=== PATIENT | male | born 1945 | race Caucasian/White ===

== ENCOUNTER 2020-09-25 17:34 | Emergency (ER) | payer MEDICARE, SELFPAY ==
--- NOTE | ~2020-09-25 | XR_ITS ---
EXAMINATION: XR chest 2V DATE: 09/25/2020 18:08 INDICATION: Cough and shortness of breath TECHNIQUE: frontal and lateral views of the chest were obtained. COMPARISON: Chest radiograph and CT dated 11/22/2011 FINDINGS: New small subtle airspace opacity at the lateral right midlung zone. Linear atelectasis/scarring at t he left costophrenic angle. Blunting at the costophrenic angles and posterior sulci consistent with v jesus small bilateral pleural effusions. No pulmonary edema, or pneumothorax. The cardiomediastinal zulema houette is normal. Mild thoracic spondylosis. IMPRESSION: 1. Subtle small airspace process in the lateral right midlung zone which could represent atelectasis or pneumonia. 2. Very small bilateral pleural effusions with mild left basilar atelectasis/scarring. Reviewed, dictated and finalized at [facility]. SPACE MANAGER IMPRESSION: 1. Subtle small airspace process in the lateral right midlung zone which could represent atelectasis or pneumonia. 2. Very small bilateral pleural effusions with mild left basilar atelectasis/sc arring.
--- NOTE | 2020-09-25 17:51 | ED.URI ---
HPI - URI/Sore Throat General Chief Complaint: Upper Respiratory Infection Stated Complaint: pneumonia Time Seen by Provider: 09/25/20 17:52 Source: patient and RN notes reviewed History of Present Illness HPI Narrative: Patient is a 75-year-old male who presents the urgent care with complaints of 2-week history of intermittent mid back pains, mild nonproductive cough, intermittent chills, some night sweats, and increased shortness of breath on exertion. Patient states he does have chronic shortness of breath due to CHF but states that this has been worse. Denies of any lower leg swelling. Denies of any chest pain. Patient denies of any known fever, nausea, vomiting, upper respiratory symptoms. Denies of any known contact with Covid. Patient states that he has had pneumonia a few times in the past and is worried that he has pneumonia again. No other acute complaints. No acute distress noted. Patient aware of the plan of care. Some parts of this dictation were generated by voice recognition software and may contain typographical and/or grammatical inaccuracies. Related Data Home Medications Medication Instructions Recorded Confirmed aspirin 81 mg tablet,delayed 81 mg PO DAILY 04/14/20 09/25/20 release atorvastatin 10 mg tablet 10 mg PO DAILY 04/14/20 09/25/20 chromium picolinate 500 mcg capsule 500 mcg PO DAILY 04/14/20 coenzyme Q10 100 mg capsule 100 mg PO DAILY 04/14/20 krill oil 500 mg capsule mg PO 04/14/20 losartan 100 mg tablet 100 mg PO DAILY 04/14/20 09/25/20 melatonin 3 mg capsule PO 04/14/20 multivitamin-ferrous 1 tablet PO DAILY 04/14/20 fumarate-folic acid 18 mg-400 mcg tablet testosterone cypionate 100 mg/mL 100 mg IM .q 10 days ml 04/14/20 09/25/20 intramuscular oil vit cap PO 04/14/20 C,E,zinc,Pb-qmmgn-9-lutein-zeaxanthin 250 mg-2.5 mg-0.5 mg capsule Allergies Allergy/AdvReac Type Severity Reaction Status Date / Time No Known Allergies Allergy Verified 09/25/20 18:16 Review of Systems Review of Systems: Narrative: CONSTITUTIONAL: Reports of chills and sweats EYES: Denies visual changes, redness, or discharge. ENT: Denies rhinorrhea, congestion, sore throat, or otalgia. CARDIOVASCULAR: Denies chest pain, palpitations, or edema. RESPIRATORY: Reports a mild nonproductive cough with intermittent dyspnea GASTROINTESTINAL: Denies abdominal pain, nausea, vomiting, or diarrhea. GENITOURINARY: Denies dysuria or hematuria. SKIN: Denies rash or itching. MUSCULOSKELETAL: Reports of mild intermittent mid back pains NEUROLOGIC: Denies headache, numbness, or weakness. PSYCHIATRIC: Denies anxiety or depression. All other systems reviewed are negative, except as documented in HPI. PMFSH Family History Family History Father Cerebrovascular accident Patient's father is Sibling Family history of lung cancer Patient's sister is Patient's brother is Mother Family history of lung cancer Patient's mother is Other Family history of cardiovascular disease Social History Social History Smoking status: Never smoker Second hand tobacco smoke exposure: No Smoking end date: 11/10/69 Alcohol intake: current Comments At the time of my signature, I reviewed and agree with the nursing past medical, surgical, social, and family history. There is no relevant family history pertinent to the patient complaint. Exam Narrative: Exam Narrative: GENERAL: This is a well-nourished, well-developed patient, in no apparent distress. HEAD: normocephalic, atraumatic. EYES: PERRL. Sclera clear/white. Vision is grossly intact. EARS: External ears normal NOSE: External nose normal with no obvious nasal discharge, nares without redness, no rhinorrhea. THROAT: Mucous membranes moist, posterior pharynx clear. NECK: Neck supple CARDIOVASCULAR: Regular rate
[2020-09-25 17:53] VITALS: BP 146/82; PULSE 61; RESP 20; TEMP 37.2; O2SAT 98
== END 2020-09-25 18:39 | disposition home or self-care (01) ==
PROVIDERS: Emergency Provider Nurse Practitioner Family; PCP Internal Medicine
DX: J18.9 Pneumonia, unspecified organism (principal); I11.0 Hypertensive heart disease with heart failure; I50.9 Heart failure, unspecified; E78.00 Pure hypercholesterolemia, unspecified; I25.10 Atherosclerotic heart disease of native coronary artery without angina pectoris; Z85.828 Personal history of other malignant neoplasm of skin
CPT/HCPCS: 71046; 99213; G0463

== ENCOUNTER 2021-06-19 12:58 | Outpatient (CLI) | payer MEDICARE, SELFPAY ==
[2021-06-19 13:42] LABS: Anion Gap 3 mmol/L (8-16); Blood Urea Nitrogen 23 mg/dL (9-20); Calcium 9.3 mg/dL (8.4-10.2); Carbon Dioxide 26 mmol/L (22-30); Chloride 108 mmol/L (98-107); Estimated Glomerular Filt Rate > 60; Glucose 115 mg/dL (65-110); Potassium 4.4 mmol/L (3.4-5.0); Sodium 137 mmol/L (137-145)
--- NOTE | 2021-06-19 15:00 | ECG_ITS ---
Measurements Intervals [place] Rate: 56 P: 54 CT: 175 QRS: 8 QRSD: 116 T: 52 QT: 383 QTc: 370 Interpretive Statements SINUS BRADYCARDIA BORDERLINE R WAVE PROGRESSION, ANTERIOR LEADS MINIMAL Q WAVES- INFERIOR LEADS BASELINE ARTIFACT- I, II, III, AVR, AVL, AVF BORDERLINE ECG Electronically Signed On 06-19-2021 13:17:15 CDT by Ming Moscoso D.O.
== END 2021-06-19 12:59 | disposition home or self-care (01) ==
LOC: ANHSURGERY 12:59
PROVIDERS: Anesthesiology; PCP Internal Medicine; Visit Provider Urology
DX: N40.0 Benign prostatic hyperplasia without lower urinary tract symptoms (principal); I10 Essential (primary) hypertension; Z01.818 Encounter for other preprocedural examination
CPT/HCPCS: 36415; 80048; 87086; 93005

== ENCOUNTER 2021-06-27 04:26 | Day surgery (SDC) | payer MEDICARE, SELFPAY ==
[2021-06-19 09:37] VITALS: BMI 30.2
[2021-06-27] VITALS (8 sets, daily range): BP systolic 106–137; BP diastolic 62–87; PULSE 50–68; RESP 13–18; TEMP 36.1–36.2; O2SAT 97–100
[2021-06-27] MEDS: ACETAMINOPHEN 500 MG TABLET 1000 MG PO (10:25)
--- NOTE | 2021-06-27 10:46 | WPDANESEPPF ---
Anes - Initial Pre Proc Eval Procedure: Operation Date: 06/27/21 12:00 Proposed Procedures p Urolift - Mounika Astudillo MD Date/Time: 06/27/21 10:46 Surgeon: Mounika Astudillo MD Pre Op Diagnosis: BPH Patient Data Age: 75 Gender: M Height: 1.88 m Weight: 108.1 kg Last Vital Signs Temp 36.1 C L 06/27/21 10:05 Pulse 52 L 06/27/21 10:05 Resp 18 06/27/21 10:05 BP 125/69 06/27/21 10:05 Pulse Ox 97 06/27/21 10:05 Allergies Allergy/AdvReac Type Severity Reaction Status Date / Time meloxicam Allergy Unknown Verified 06/19/21 09:27 trazodone Allergy Unknown Verified 06/19/21 09:27 Home Medications Medication Instructions Recorded Confirmed Type aspirin 81 mg tablet,delayed 81 mg PO HS 04/14/20 06/19/21 History release atorvastatin 10 mg tablet 10 mg PO HS 04/14/20 06/19/21 History carvedilol 25 mg tablet 37.5 mg PO Q12H #180 tablet 04/14/20 06/19/21 Rx coenzyme Q10 100 mg capsule 100 mg PO DAILY 04/14/20 06/19/21 History krill oil 500 mg capsule 500 mg PO DAILY 04/14/20 06/19/21 History losartan 100 mg tablet 100 mg PO QAM 04/14/20 06/19/21 History melatonin 3 mg capsule 3 mg PO HS 04/14/20 06/19/21 History multivitamin-ferrous 1 tablet PO DAILY 04/14/20 06/19/21 History fumarate-folic acid 18 mg-400 mcg tablet testosterone cypionate 100 mg/mL 100 mg IM .q 10 days ml 04/14/20 06/19/21 History intramuscular oil vit 1 cap PO BID 04/14/20 06/19/21 History C,E,zinc,Uz-oyyyj-5-lutein-zeaxanthin 250 mg-2.5 mg-0.5 mg capsule lorazepam 0.5 mg tablet 0.5 mg PO BID PRN #60 tablet 05/15/20 06/19/21 Rx albuterol sulfate 2 puff INHALATION QID PRN #8 gm 09/25/20 06/19/21 Rx amlodipine 5 mg PO HS 06/19/21 06/19/21 History cyclosporine [Restasis] 1 drp EACH EYE Q12H 06/19/21 06/19/21 History furosemide 20 mg PO QAM 06/19/21 06/19/21 History Patient hx anesthesia problems: none Family hx anesthesia problems: none PMFSH Past Medical History Medical History (Updated 06/27/21 @ 10:49 by Og Medina MD) Anxiety BPH (benign prostatic hyperplasia) CAD (coronary artery disease) CHF (congestive heart failure) Randee's disease HTN (hypertension) Obesity NIC (obstructive sleep apnea) Pure hypercholesterolemia Surgical History Surgical History (Updated 06/27/21 @ 10:49 by Og Medina MD) History of coronary artery stent placement Family History Family History Father Cerebrovascular accident Patient's father is Sibling Family history of lung cancer Patient's sister is Patient's brother is Mother Family history of lung cancer Patient's mother is Other Family history of cardiovascular disease Social History Social History Smoking status: Never smoker Second hand tobacco smoke exposure: No Smoking end date: 11/10/69 Alcohol intake: current Drinks per week: 8 Substance use: never Living arrangements: with family Additional living arrangements comments: Spiritual care concerns: No Anes - Eval Final PreProcedure Day of Procedure 06/27/21 10:46 Patient weight: obese Heart: regular rate and rhythm Lungs: clear to auscultation and normal air movement Airway: Mallampati scale class II Neurological: alert and oriented Last oral intake: >/= 8 hours ASA classification: III Emergent: no Anesthetic plan: proceed Anesthesia type and monitoring: general GIVS and LMA Informed Consent: The patient's anesthetic plan and its attendant risks and benefits were discussed with the patient/family/POA. Questions were solicited and answers provided to the satisfaction of the patient/family/POA.
--- NOTE | 2021-06-27 12:47 | WPDHPUPDATE1 ---
History and Physical Update Update Date/Time: 06/27/21 12:47 History and Physical has been reviewed, including an updated exam of the patient. There are NO changes in the patient's condition. Risks, benefits, and alternatives have been discussed and questions answered. Patient agrees to proceed with procedure.
--- NOTE | 2021-06-27 12:53 | PM.IMHP ---
H&P: HPI History of Present Illness Date/Time: 06/27/21 12:53 LUTS Chief Complaint: BPH Review of Systems Review of Systems: All systems reviewed & are unremarkable except as noted in HPI and below [facility] Past Medical History Medical History (Updated 06/27/21 @ 10:49 by Og Medina MD) Anxiety BPH (benign prostatic hyperplasia) CAD (coronary artery disease) CHF (congestive heart failure) Randee's disease HTN (hypertension) Obesity NIC (obstructive sleep apnea) Pure hypercholesterolemia Surgical History Surgical History (Updated 06/27/21 @ 10:49 by Og Medina MD) History of coronary artery stent placement Family History Family History Father Cerebrovascular accident Patient's father is Sibling Family history of lung cancer Patient's sister is Patient's brother is Mother Family history of lung cancer Patient's mother is Other Family history of cardiovascular disease Social History Social History Smoking status: Never smoker Second hand tobacco smoke exposure: No Smoking end date: 11/10/69 Alcohol intake: current Drinks per week: 8 Substance use: never Living arrangements: with family Additional living arrangements comments: Spiritual care concerns: No Meds Home Medications and Allergies Home Medications Medication Instructions Recorded Confirmed Type aspirin 81 mg tablet,delayed 81 mg PO HS 04/14/20 06/19/21 History release atorvastatin 10 mg tablet 10 mg PO HS 04/14/20 06/19/21 History carvedilol 25 mg tablet 37.5 mg PO Q12H #180 tablet 04/14/20 06/19/21 Rx coenzyme Q10 100 mg capsule 100 mg PO DAILY 04/14/20 06/19/21 History krill oil 500 mg capsule 500 mg PO DAILY 04/14/20 06/19/21 History losartan 100 mg tablet 100 mg PO QAM 04/14/20 06/19/21 History melatonin 3 mg capsule 3 mg PO HS 04/14/20 06/19/21 History multivitamin-ferrous 1 tablet PO DAILY 04/14/20 06/19/21 History fumarate-folic acid 18 mg-400 mcg tablet testosterone cypionate 100 mg/mL 100 mg IM .q 10 days ml 04/14/20 06/19/21 History intramuscular oil vit 1 cap PO BID 04/14/20 06/19/21 History C,E,zinc,Oz-fvrbi-9-lutein-zeaxanthin 250 mg-2.5 mg-0.5 mg capsule lorazepam 0.5 mg tablet 0.5 mg PO BID PRN #60 tablet 05/15/20 06/19/21 Rx albuterol sulfate 2 puff INHALATION QID PRN #8 gm 09/25/20 06/19/21 Rx amlodipine 5 mg PO HS 06/19/21 06/19/21 History cyclosporine [Restasis] 1 drp EACH EYE Q12H 06/19/21 06/19/21 History furosemide 20 mg PO QAM 06/19/21 06/19/21 History Allergies Allergy/AdvReac Type Severity Reaction Status Date / Time meloxicam Allergy Unknown Verified 06/19/21 09:27 trazodone Allergy Unknown Verified 06/19/21 09:27 Vital Signs Vital Signs - 24 hr 06/27/21 10:05 Temperature 36.1 C L Pulse Rate 52 L Respiratory Rate 18 Blood Pressure 125/69 Pulse Oximetry 97 Exam Const: General: cooperative and healthy appearing Eyes: General: appearance normal, both eyes and all related structures Chest: Chest palpation & inspection: normal inspection of the chest Resp: Effort & Inspection: normal respiratory effort Assessment and Plan Assessment and plan (1) BPH (benign prostatic hyperplasia): Code(s): N40.0 - Benign prostatic hyperplasia without lower urinary tract symptoms Status: Acute Assessment and Plan: Plan cystoscopy and Urolift Procedure
[2021-06-27] MEDS: LIDOCAINE HCL 2% GEL UROJET 10 ML PKG MUCOUS MEM (13:07)
--- NOTE | 2021-06-27 13:35 | W.PM.PROC2 ---
Procedure Note - Detailed Date of Procedure 06/27/21 Pre-op Diagnosis BPH Post-op Diagnosis same Procedure Performed Cystoscopy and Urolift Surgeon Mounika Astudillo MD Anesthesia general Description of Procedure Informed consent was obtained. Patient taken the operating. He was given preoperative IV antibiotics. Induced with anesthesia. He was placed in dorsal lithotomy position. A 22 F cystoscope was inserted through the urethra into the bladder. The patient had mild trabeculation of the bladder. The patient had bilobar prostatic hyperplasia. We then inserted the 1st UroLift treatment device. Her 1st treatment was on the left side 2cm distal to the bladder neck. We compressed the prostatic tissue while angling the UroLift device. We then fired the treatment needle applying a capsular tab we then tensioned the suture and cut the suture allowing for appropriate deployment of the device. We then performed identical procedure on the right side proximal to the bladder neck, as well as bilaterally just proximal to the verumontanum. We then inspected with a rigid and flexible cystoscope confirming appropriate placement of the 4 tab without presents in the bladder. There was a appropriate anterior channel, therefore we elected not to place additional UroLift tabs. We left [id number] of fluid in the bladder the patient was awakened the ureter was the condition Drains No Packing No Pathology none sent Complications No immediate complications Condition stable Disposition PACU
[2021-06-27] MEDS: LACTATED RINGERS 1,000 ML 30 ML IV CONT (13:39)
== END 2021-06-27 15:10 | disposition home or self-care (01) ==
PROVIDERS: PCP Internal Medicine; Visit Provider Urology
PROC: 0T7D8DZ Dilation of Urethra with Intraluminal Device, Via Natural or Artificial Opening Endoscopic (ICD-10-PCS; CPT 52441; principal; 2021-06-27 12:00)
DX: N40.1 Benign prostatic hyperplasia with lower urinary tract symptoms (principal); R39.11 Hesitancy of micturition; R39.12 Poor urinary stream; R35.0 Frequency of micturition; I25.10 Atherosclerotic heart disease of native coronary artery without angina pectoris; F41.9 Anxiety disorder, unspecified; I11.0 Hypertensive heart disease with heart failure; I50.9 Heart failure, unspecified; E06.3 Autoimmune thyroiditis; G47.33 Obstructive sleep apnea (adult) (pediatric); E78.00 Pure hypercholesterolemia, unspecified; Z79.82 Long term (current) use of aspirin; Z79.51 Long term (current) use of inhaled steroids; E66.9 Obesity, unspecified; Z68.30 Body mass index [BMI] 30.0-30.9, adult
CPT/HCPCS: C9740; 36415; 80048; 87086; 93005; A9270; J1100; J2405; J2704; J3010; J7120; L8699

== ENCOUNTER 2021-10-14 11:03 | Emergency (ER) | payer MEDICARE, SELFPAY ==
--- NOTE | ~2021-10-14 | XR_ITS ---
EXAMINATION: XR chest 2V DATE: 10/14/2021 11:22 INDICATION: Cough, shortness of breath and chest congestion TECHNIQUE: PA and lateral views of the chest were obtained. COMPARISON: Chest radiograph dated 09/25/2020 FINDINGS: The lungs are clear with no focal airspace opacities, pulmonary edema, pleural effusion or pneumothor ax. The cardiomediastinal silhouette is normal. Mild thoracic spondylosis with minimal anterior wedgi ng of a few mid to lower thoracic vertebra. IMPRESSION: 1. No acute cardiopulmonary disease. Reviewed, dictated and finalized at location A. UNICATIONS SUPERVISOR
--- NOTE | 2021-10-14 11:09 | ED.URI ---
HPI - URI/Sore Throat General Chief Complaint: Upper Respiratory Infection Stated Complaint: Cough,Shortness of Breath,Congestion Time Seen by Provider: 10/14/21 11:10 Source: patient, RN notes reviewed and old records reviewed Mode of arrival: ambulatory Limitations: no limitations History of Present Illness HPI Narrative: 76-year-old male presents to the [facility] with complaints of cough, shortness of breath and chest congestion since Friday, 4 days, after he got his Covid booster. has similar symptoms. Has concern for pneumonia versus bronchitis. Denies any swelling. Denies any symptoms of his congestive heart failure. No abdominal pain or chest pain. Has felt feverish. Related Data Home Medications Medication Instructions Recorded Confirmed aspirin 81 mg tablet,delayed 81 mg PO HS 04/14/20 10/14/21 release atorvastatin 10 mg tablet 10 mg PO HS 04/14/20 10/14/21 coenzyme Q10 100 mg capsule 100 mg PO DAILY 04/14/20 10/14/21 krill oil 500 mg capsule 500 mg PO DAILY 04/14/20 10/14/21 losartan 100 mg tablet 100 mg PO QAM 04/14/20 10/14/21 melatonin 3 mg capsule 3 mg PO HS 04/14/20 10/14/21 multivitamin-ferrous 1 tablet PO DAILY 04/14/20 10/14/21 fumarate-folic acid 18 mg-400 mcg tablet testosterone cypionate 100 mg/mL 100 mg IM .q 10 days ml 04/14/20 10/14/21 intramuscular oil vit 1 cap PO BID 04/14/20 10/14/21 C,E,zinc,Gf-zqaas-8-lutein-zeaxanthin 250 mg-2.5 mg-0.5 mg capsule Restasis 1 drp EACH EYE Q12H 06/19/21 10/14/21 amlodipine 5 mg PO HS 06/19/21 10/14/21 furosemide 20 mg PO QAM 06/19/21 10/14/21 Allergies Allergy/AdvReac Type Severity Reaction Status Date / Time meloxicam Allergy Unknown Verified 10/14/21 11:23 trazodone Allergy Unknown Verified 10/14/21 11:24 Review of Systems Review of Systems: All systems reviewed & are unremarkable except as noted in HPI and below Constitutional: Constitutional: Reports as per HPI, Reports chills, Denies fatigue, Denies fever(s) and Denies weakness Eyes: Eyes: Reports no additional eye complaints ENT: Reports system reviewed and no additional complaints, except as documented and Denies sore throat Cardiovascular: Cardiovascular: Denies chest pain Respiratory: Respiratory: Reports as per HPI, Reports chest congestion, Reports cough, Reports dyspnea and Reports wheezing Gastrointestinal: Gastrointestinal: Reports no additional gastrointestinal complaints, Denies abdominal pain, Denies nausea and Denies vomiting Musculoskeletal: Musculoskeletal: Reports no additional musculoskeletal complaints Integumentary/Breasts: Skin/Breast: Reports system reviewed and no additional complaints, except as docu Neurologic: Reports system reviewed and no additional complaints, except as documented Psychiatric: Psychiatric: Reports no additional psychiatric complaints Allergic/Immunologic: Allergic/Immunologic: Reports no additional allergic/immunologic complaints [facility] Past Medical History Medical History Anxiety BPH (benign prostatic hyperplasia) CAD (coronary artery disease) CHF (congestive heart failure) Randee's disease HTN (hypertension) Obesity NIC (obstructive sleep apnea) Pure hypercholesterolemia Surgical History Surgical History History of coronary artery stent placement Family History Family History Father Cerebrovascular accident Patient's father is Sibling Family history of lung cancer Patient's sister is Patient's brother is Mother Family history of lung cancer Patient's mother is Other Family history of cardiovascular disease Social History Social History Smoking status: Never smoker Second hand tobacco smoke exposure: No Smoking end date: 11/10/69 Alcohol intake: c
[2021-10-14 11:15] VITALS: BP 136/82; PULSE 72; RESP 20; TEMP 36.3; O2SAT 98
== END 2021-10-14 11:42 | disposition home or self-care (01) ==
PROVIDERS: Emergency Provider Nurse Practitioner; PCP Internal Medicine
DX: J40 Bronchitis, not specified as acute or chronic (principal); I25.10 Atherosclerotic heart disease of native coronary artery without angina pectoris; I11.0 Hypertensive heart disease with heart failure; I50.9 Heart failure, unspecified; Z79.82 Long term (current) use of aspirin
CPT/HCPCS: 71046; 99213; G0463

== ENCOUNTER 2023-06-24 04:11 | Day surgery (SDC) | payer MEDICARE, SELFPAY ==
[2023-06-10 14:35] VITALS: BMI 30.2
[2023-06-24 11:03] VITALS: BP 128/58; PULSE 51; RESP 18; TEMP 36.4; O2SAT 99
[2023-06-24] MEDS: LACTATED RINGERS 1,000 ML 150 ML IV CONT (11:05)
--- NOTE | 2023-06-24 11:12 | PM.HPGS ---
History of Present Illness History of Present Illness Consent: Risks, benefits, and alternatives have been discussed and questions answered. Patient agrees to proceed with procedure. Chief complaint: hx of colon polyps Narrative: Yogi Barclay is a 77 year old male Presents for screening colonoscopy. Patient has had several benign colon polyps in the past had a benign lipoma in 2018 in a mucosal polyp in 2012. Family history is significant both brother and father have had colon polyps. Patient reports his weight appetite and bowel movements are normal. Patient denies abdominal pain. He has had no bleeding. Patient does notice occasional urgency after eating out at a restaurant. Review of Systems Review of Systems: Review of systems noncontributory. [facility] Past Medical History Medical History (Updated 06/24/23 @ 11:14 by Tim Alanis MD) Anxiety BPH (benign prostatic hyperplasia) CAD (coronary artery disease) CHF (congestive heart failure) Randee's disease HTN (hypertension) Obesity NIC (obstructive sleep apnea) Pure hypercholesterolemia Surgical History Surgical History History of coronary artery stent placement Family History Family History Father Cerebrovascular accident Patient's father is Sibling Family history of lung cancer Patient's sister is Patient's brother is Mother Family history of lung cancer Patient's mother is Sibling Heart disease Other Family history of cardiovascular disease Social History Social History Smoking status: Never smoker Second hand tobacco smoke exposure: No Smoking end date: 11/10/69 Alcohol intake: current Drinks per week: 5 Alcohol use details: Beer Substance use: never Substance use type: does not use Living arrangements: with family Additional living arrangements comments: Spiritual care concerns: No Meds Home Medications and Allergies Home Medications Medication Instructions Recorded Confirmed Type aspirin 81 mg tablet,delayed 81 mg PO HS 04/14/20 06/10/23 History release atorvastatin 10 mg tablet 10 mg PO HS 04/14/20 06/10/23 History carvedilol 25 mg tablet 37.5 mg PO Q12H #180 tabs 04/14/20 06/24/23 Rx coenzyme Q10 100 mg capsule 100 mg PO DAILY 04/14/20 06/10/23 History (CoQ-10) krill oil 500 mg capsule 500 mg PO DAILY 04/14/20 06/10/23 History losartan 100 mg tablet 100 mg PO QAM 04/14/20 06/10/23 History multivitamin-ferrous 1 tablet PO DAILY 04/14/20 06/10/23 History fumarate-folic acid 18 mg-400 mcg tablet (Centrum) testosterone cypionate 100 mg/mL 100 mg IM .q 10 days 04/14/20 06/10/23 History intramuscular oil (Depo-Testosterone) vit 1 cap PO BID 04/14/20 06/10/23 History C,E,zinc,Ig-kstke-6-lutein-zeaxanthin 250 mg-2.5 mg-0.5 mg capsule amlodipine 5 mg tablet 5 mg PO HS 06/19/21 06/10/23 History inhalational spacing device #1 ea 10/14/21 04/25/23 Rx (Aerochamber with Flowsignal) furosemide 20 mg tablet 20 mg PO QAM 04/25/23 06/10/23 History melatonin 5 mg tablet 5 mg PO HS 06/10/23 06/10/23 History terbinafine HCl 250 mg tablet 250 mg PO DAILY 06/10/23 06/10/23 History Allergies Allergy/AdvReac Type Severity Reaction Status Date / Time meloxicam Allergy Unknown Verified 06/24/23 11:01 trazodone Allergy Unknown Verified 06/24/23 11:01 Vital Signs Vital Signs - 24 hr 06/24/23 11:03 Temperature 97.5 F L Pulse Rate 51 L Respiratory Rate 18 Blood Pressure 128/58 L Pulse Oximetry 99 Oxygen Delivery Room Air Exam Narrative: Physical exam reveals patient to be alert. Vital signs stable. HEENT exam is unremarkable. Patient is anicteric. Lungs are clear to auscultation and percussion. Heart is without murmur or extra sounds. Abdomen bow
--- NOTE | 2023-06-24 11:35 | WPDANESEPPF ---
Anes - Initial Pre Proc Eval Procedure: Operation Date: 06/24/23 12:30 Proposed Procedures p Colonoscopy - Tim Alanis MD Date/Time: 06/24/23 11:35 Surgeon: Tim Alanis MD Pre Op Diagnosis: hx of colon polyps Patient Data Age: 77 Gender: M Height: 1.88 m Weight: 102.8 kg Last Vital Signs Temp 36.4 C L 06/24/23 11:03 Pulse 51 L 06/24/23 11:03 Resp 18 06/24/23 11:03 BP 128/58 L 06/24/23 11:03 Pulse Ox 99 06/24/23 11:03 O2 Del Method Room Air 06/24/23 11:03 Allergies Allergy/AdvReac Type Severity Reaction Status Date / Time meloxicam Allergy Unknown Verified 06/24/23 11:01 trazodone Allergy Unknown Verified 06/24/23 11:01 Home Medications Medication Instructions Recorded Confirmed Type aspirin 81 mg tablet,delayed 81 mg PO HS 04/14/20 06/10/23 History release atorvastatin 10 mg tablet 10 mg PO HS 04/14/20 06/10/23 History carvedilol 25 mg tablet 37.5 mg PO Q12H #180 tabs 04/14/20 06/24/23 Rx coenzyme Q10 100 mg capsule 100 mg PO DAILY 04/14/20 06/10/23 History (CoQ-10) krill oil 500 mg capsule 500 mg PO DAILY 04/14/20 06/10/23 History losartan 100 mg tablet 100 mg PO QAM 04/14/20 06/10/23 History multivitamin-ferrous 1 tablet PO DAILY 04/14/20 06/10/23 History fumarate-folic acid 18 mg-400 mcg tablet (Centrum) testosterone cypionate 100 mg/mL 100 mg IM .q 10 days 04/14/20 06/10/23 History intramuscular oil (Depo-Testosterone) vit 1 cap PO BID 04/14/20 06/10/23 History C,E,zinc,Hz-rgirl-8-lutein-zeaxanthin 250 mg-2.5 mg-0.5 mg capsule amlodipine 5 mg tablet 5 mg PO HS 06/19/21 06/10/23 History inhalational spacing device #1 ea 10/14/21 04/25/23 Rx (Aerochamber with Flowsignal) furosemide 20 mg tablet 20 mg PO QAM 04/25/23 06/10/23 History melatonin 5 mg tablet 5 mg PO HS 06/10/23 06/10/23 History terbinafine HCl 250 mg tablet 250 mg PO DAILY 06/10/23 06/10/23 History Patient hx anesthesia problems: none Family hx anesthesia problems: none Results Review: All pre-operative results and documents have been reviewed as part of the pre-operative evaluation. [facility] Past Medical History Medical History Anxiety BPH (benign prostatic hyperplasia) CAD (coronary artery disease) CHF (congestive heart failure) Randee's disease HTN (hypertension) Obesity NIC (obstructive sleep apnea) Pure hypercholesterolemia Surgical History Surgical History History of coronary artery stent placement Family History Family History Father Cerebrovascular accident Patient's father is Sibling Family history of lung cancer Patient's sister is Patient's brother is Mother Family history of lung cancer Patient's mother is Sibling Heart disease Other Family history of cardiovascular disease Social History Social History Smoking status: Never smoker Second hand tobacco smoke exposure: No Smoking end date: 11/10/69 Alcohol intake: current Drinks per week: 5 Alcohol use details: Beer Substance use: never Substance use type: does not use Living arrangements: with family Additional living arrangements comments: Spiritual care concerns: No Anes - Eval Final PreProcedure Day of Procedure 06/24/23 11:35 Patient weight: overweight Heart: regular rate and rhythm Lungs: clear to auscultation Airway: Mallampati scale class II Neurological: alert and oriented Last oral intake: >/= 8 hours ASA classification: III Emergent: no Anesthetic plan: proceed Anesthesia type and monitoring: general GIVS and standard monitoring Results Review: All pre-operative results and documents have been reviewed as part of the pre-operative evaluation. Informed Con
--- NOTE | 2023-06-24 12:43 | SUR.OPER ---
cecal polyp not able to be collected from scope for pathology, md yeboah
[2023-06-24 12:47] VITALS: BP 101/53; PULSE 58; RESP 22; O2SAT 96
[2023-06-24 12:57] VITALS: BP 101/59; PULSE 57; RESP 20; O2SAT 97
== END 2023-06-24 13:16 | disposition home or self-care (01) ==
PROVIDERS: PCP Internal Medicine; Visit Provider Internal Medicine Gastroenterology
PROC: 0DJD8ZZ Inspection of Lower Intestinal Tract, Via Natural or Artificial Opening Endoscopic (ICD-10-PCS; CPT 45378; principal; 2023-06-24 12:30)
DX: Z12.11 Encounter for screening for malignant neoplasm of colon (principal); K63.5 Polyp of colon; K64.8 Other hemorrhoids; K57.30 Diverticulosis of large intestine without perforation or abscess without bleeding; I25.10 Atherosclerotic heart disease of native coronary artery without angina pectoris; I11.0 Hypertensive heart disease with heart failure; I50.9 Heart failure, unspecified; N40.0 Benign prostatic hyperplasia without lower urinary tract symptoms; E06.3 Autoimmune thyroiditis; G47.33 Obstructive sleep apnea (adult) (pediatric); E78.00 Pure hypercholesterolemia, unspecified; F41.9 Anxiety disorder, unspecified; Z95.5 Presence of coronary angioplasty implant and graft; Z79.82 Long term (current) use of aspirin; Z83.71 Family history of colonic polyps
CPT/HCPCS: 45385; 88305; J2704; J7120

== ENCOUNTER 2023-10-08 11:59 | Emergency (ER) | payer MEDICARE, OTHER, SELFPAY ==
--- NOTE | ~2023-10-08 | CT_ITS ---
EXAMINATION: CT thoracic lumbar wo con DATE: 10/08/2023 13:16 INDICATION: Back injury. Fall from ladder. Back pain. TECHNIQUE: Computed tomography (CT) of the thoracic and lumbar spine was performed without intravenou s contrast. Automated exposure control and iterative reconstruction technique were employed. The dose -length product was 2198.17 mGy-cm. COMPARISON: None FINDINGS: CT THORACIC SPINE: There are trace pleural effusions. Calcified pulmonary nodules and calcified hilar lymph nodes are consistent with old granulomatous disease. There is 8 degrees levocurvature of upper thoracic spine. There is mild chronic anterior wedging of T6-T12 vertebral bodies. There is mildly d ecreased disc height at multiple levels. There is mild central canal stenosis at T9-T10 and T10-T11. There is multilevel mild to moderate facet joint osteoarthritis. On the right, there is severe facet joint osteoarthritis at T4-T5 and T9-T10. On the right, there is mild neural foraminal stenosis at T4 -T5 and T9-T10. CT LUMBAR SPINE: There are cysts in the kidneys measuring up to 8.1 cm on the right. There is 5 degre es dextrocurvature of lumbar spine. Vertebral body heights are normal. There is mildly decreased disc height at L3-L4 and L4-L5 and moderately decreased disc height at L5-S1. The following disc levels a re specifically discussed: L1-L2: The disc does not extend beyond the endplate margin. There is mild right and severe left facet joint osteoarthritis. There is no neural foraminal stenosis. There is no central canal stenosis. L2-L3: The disc does not extend beyond the endplate margin. There is mild bilateral facet joint osteo arthritis. There is no neural foraminal stenosis. There is no central canal stenosis. L3-L4: The disc is bulging. There is moderate bilateral facet joint osteoarthritis. There is mild lashay ateral neural foraminal stenosis. There is mild central canal stenosis. L4-L5: The disc is bulging. There is severe bilateral facet joint osteoarthritis. There is mild bilat eral neural foraminal stenosis. There is mild central canal stenosis. L5-S1: The disc is bulging. There is severe bilateral facet joint osteoarthritis. There is moderate r ight and mild left mild neural foraminal stenosis. There is no central canal stenosis. IMPRESSION: 1. No fracture. 2. Mild thoracic spondylosis and moderate lower lumbar spondylosis. Reviewed, dictated and finalized at location A. BOSS HOEING
--- NOTE | ~2023-10-08 | CT_ITS ---
EXAMINATION: CT cervical spine wo con DATE: 10/08/2023 13:15 INDICATION: Neck injury. Back pain. TECHNIQUE: Computed tomography (CT) of the cervical spine was performed without intravenous contrast. Automated exposure control and iterative reconstruction technique were employed. The dose-length pro duct was 513.05 mGy-cm. COMPARISON: None FINDINGS: There is 13 degrees dextroscoliosis of cervical spine. Vertebral body heights are normal. T here is mildly decreased disc height at C4-C5 and severely decreased disc height at C5-C6 and C6-C7. The following disc levels are specifically discussed: C2-C3: There is mild left uncovertebral joint osteoarthritis. There is mild right and severe left fac et joint osteoarthritis. There is mild left neural foraminal stenosis. There is no central canal sten osis. C3-C4: There is mild bilateral uncovertebral joint osteoarthritis. There is mild right and severe lef t facet joint osteoarthritis. There is mild left neural foraminal stenosis. There is no central canal stenosis. C4-C5: There is severe right and moderate left uncovertebral joint osteoarthritis. There is mild righ t and severe left facet joint osteoarthritis. There is mild bilateral neural foraminal stenosis. Ther e is mild central canal stenosis. C5-C6: There is severe bilateral uncovertebral joint osteoarthritis. There is mild bilateral facet tresa int osteoarthritis. There is moderate right and mild left neural foraminal stenosis. There is mild ce ntral canal stenosis. C6-C7: There is severe bilateral uncovertebral joint osteoarthritis. There is moderate bilateral face t joint osteoarthritis. There is moderate right and mild left neural foraminal stenosis. There is mil d central canal stenosis. C7-T1: There is no uncovertebral joint osteoarthritis. There is moderate and severe left facet joint osteoarthritis. There is mild left neural foraminal stenosis. There is no central canal stenosis. IMPRESSION: 1. No fracture. 2. Severe cervical spondylosis. 3. Cervical dextroscoliosis. Reviewed, dictated and finalized at location A. [employer]
--- NOTE | ~2023-10-08 | CT_ITS ---
EXAMINATION: CT brain wo con DATE: 10/08/2023 13:15 INDICATION: Head injury. TECHNIQUE: Computed tomography (CT) of the head was performed without intravenous contrast. The mA wa s adjusted according to patient size. Iterative reconstruction technique was employed. The dose-lengt h product was 681.00 mGy-cm. COMPARISON: None FINDINGS: There are scattered areas of low attenuation in the cerebral white matter, which is within normal limits for the patient's age. There is no intracranial hemorrhage, acute infarction, or abnorm al intracranial mass lesion. The ventricles are normal in size. There is mild mucosal thickening in t he paranasal sinuses. The orbits are normal. The mastoid air cells are normal. IMPRESSION: 1. Normal aging brain. Reviewed, dictated and finalized at location A. OGRAPHER ANGIOGRAM IMPRESSION: 1. Normal aging brain.
[2023-10-08 12:01] VITALS: BP 144/68; PULSE 61; RESP 18; TEMP 36.3; O2SAT 98
[2023-10-08] MEDS: HYDROcodone/acetaminophen (*CRX) 5-325 MG TABLET 1 TAB PO (12:55)
--- NOTE | 2023-10-08 12:58 | ED.FALL ---
HPI - Fall General Chief Complaint: Fall Stated Complaint: fall, back pain Time Seen by Provider: 10/08/23 12:29 History of Present Illness HPI Narrative: 78-year-old male presenting to the emergency department for evaluation after having a fall. Patient states he was working on a ladder and fell back landing on his back. Patient is unsure if he struck his head but denies any loss of consciousness. Patient states he is able to ambulate after the fall but states over the course of the day since a fall at 9:00 a.m. he has had progressively worsening lower back pain. Patient denies any associated numbness or weakness. Related Data Home Medications Medication Instructions Recorded Confirmed aspirin 81 mg tablet,delayed 81 mg PO HS 04/14/20 06/10/23 release atorvastatin 10 mg tablet 10 mg PO HS 04/14/20 06/10/23 coenzyme Q10 100 mg capsule 100 mg PO DAILY 04/14/20 06/10/23 (CoQ-10) krill oil 500 mg capsule 500 mg PO DAILY 04/14/20 06/10/23 losartan 100 mg tablet 100 mg PO QA 04/14/20 06/10/23 multivitamin-ferrous 1 tablet PO DAILY 04/14/20 06/10/23 fumarate-folic acid 18 mg-400 mcg tablet (Centrum) testosterone cypionate 100 mg/mL 100 mg IM .q 10 days 04/14/20 06/10/23 intramuscular oil (Depo-Testosterone) vit 1 cap PO BID 04/14/20 06/10/23 C,E,zinc,Xf-bkcbv-2-lutein-zeaxanthin 250 mg-2.5 mg-0.5 mg capsule amlodipine 5 mg tablet 5 mg PO HS 06/19/21 06/10/23 furosemide 20 mg tablet 20 mg PO QAM 04/25/23 06/10/23 melatonin 5 mg tablet 5 mg PO 06/10/23 06/10/23 terbinafine HCl 250 mg tablet 250 mg PO DAILY 06/10/23 06/10/23 Allergies Allergy/AdvReac Type Severity Reaction Status Date / Time meloxicam Allergy Unknown Verified 10/08/23 12:11 trazodone Allergy Unknown Verified 10/08/23 12:11 Review of Systems Review of Systems: All systems reviewed & are unremarkable except as noted in HPI and below PMFSH Past Medical History Medical History Anxiety BPH (benign prostatic hyperplasia) CAD (coronary artery disease) CHF (congestive heart failure) Randee's disease HTN (hypertension) Obesity NIC (obstructive sleep apnea) Pure hypercholesterolemia Surgical History Surgical History History of coronary artery stent placement Family History Family History Father Cerebrovascular accident Patient's father is Sibling Family history of lung cancer Patient's sister is Patient's brother is Mother Family history of lung cancer Patient's mother is Sibling Heart disease Other Family history of cardiovascular disease Social History Social History Smoking status: Never smoker Second hand tobacco smoke exposure: No Smoking end date: 11/10/69 Alcohol intake: current Drinks per week: 5 Alcohol use details: Beer Substance use: never Substance use type: does not use Living arrangements: with family Additional living arrangements comments: Spiritual care concerns: No Exam Narrative: APPEARANCE: Well appearing, no pain, no distress, well-nourished. HEAD: normocephalic, atraumatic. EYES: PERRLA/EOMI, conjunctivae clear. NOSE: Normal no drainage EARS:TMS clear with good light reflex. THROAT: Pharynx clear, no exudate. NECK: Supple. No adenopathy, no masses. RESPIRATORY: Airway patent, respirations nonlabored. Clear to auscultation bilaterally, no rales, rhonchi, wheezing. CARDIOVASCULAR: Regular rate and rhythm without murmurs rubs or gallops. ABDOMINAL: Soft, nontender, nondistended, normal bowel sounds MUSCULOSKELETAL: thoracic and lumbar back tenderness to palpation NEURO: Alert. Cranial nerves II through XII intact. Grossly intact SKIN: Warm, dry. Normal Color Course Course E
[2023-10-08 14:27] VITALS: BP 138/86; PULSE 84; RESP 16; O2SAT 99
== END 2023-10-08 14:33 | disposition home or self-care (01) ==
PROVIDERS: Emergency Provider Emergency Medicine; PCP Internal Medicine
DX: M54.9 Dorsalgia, unspecified (principal); I25.10 Atherosclerotic heart disease of native coronary artery without angina pectoris; I11.0 Hypertensive heart disease with heart failure; I50.9 Heart failure, unspecified; W11.XXXA Fall on and from ladder, initial encounter
CPT/HCPCS: 70450; 72125; 72128; 72131; 99284; A9270

== ENCOUNTER 2023-10-15 16:42 | Emergency (ER) | payer OTHER, MEDICARE, SELFPAY ==
[2023-10-15 16:58] VITALS: BP 132/71; PULSE 70; RESP 16; TEMP 37.1; O2SAT 99
--- NOTE | 2023-10-15 17:06 | ED.GENADULT ---
HPI - General Adult General Chief complaint: Skin/Abscess/Foreign Body Stated complaint: left leg red,warm to touch Time Seen by Provider: 10/15/23 17:07 Source: patient Mode of arrival: ambulatory Limitations: no limitations History of Present Illness HPI narrative: 78-year-old male presented for complaint redness, warmth, and swelling surrounding 2 wounds to the left lower leg, worsening for about 3 days. Patient sustained the leg abrasions after a fall on 10/08/23, stating a concrete block scraped the leg when he fell off a ladder. Pt was seen in the ER following the fall due to back pain, but pt states he did not have concern about the leg wounds at the time. States he was wearing jeans when the injury occurred. Has been keeping the wounds open to air, and has not needed to apply anything to the sites, and the wounds have scabbed. Pt has been unable to f/u with pcp for ER f/u. denies numbness, tingling or weakness of the leg, denies drainage or streaking from the wounds, n/v/d/f/c. Related Data Home Medications Medication Instructions Recorded Confirmed aspirin 81 mg tablet,delayed 81 mg PO HS 04/14/20 10/15/23 release atorvastatin 10 mg tablet 10 mg PO HS 04/14/20 10/15/23 coenzyme Q10 100 mg capsule 100 mg PO DAILY 04/14/20 10/15/23 (CoQ-10) krill oil 500 mg capsule 500 mg PO DAILY 04/14/20 10/15/23 losartan 100 mg tablet 100 mg PO QAM 04/14/20 10/15/23 multivitamin-ferrous 1 tablet PO DAILY 04/14/20 10/15/23 fumarate-folic acid 18 mg-400 mcg tablet (Centrum) testosterone cypionate 100 mg/mL 100 mg IM .q 10 days 04/14/20 10/15/23 intramuscular oil (Depo-Testosterone) vit 1 cap PO BID 04/14/20 10/15/23 C,E,zinc,Kw-orhlv-5-lutein-zeaxanthin 250 mg-2.5 mg-0.5 mg capsule amlodipine 5 mg tablet 5 mg PO HS 06/19/21 10/15/23 furosemide 20 mg tablet 20 mg PO QAM 04/25/23 10/15/23 melatonin 5 mg tablet 5 mg PO HS 06/10/23 10/15/23 terbinafine HCl 250 mg tablet 250 mg PO DAILY 06/10/23 10/15/23 Allergies Allergy/AdvReac Type Severity Reaction Status Date / Time meloxicam Allergy Unknown Verified 10/15/23 16:48 trazodone Allergy Unknown Verified 10/15/23 16:48 Review of Systems Review of Systems: CONSTITUTIONAL: Denies body aches, fever, chills, or sweats. EYES: Denies visual changes, redness, or discharge. ENT: Denies rhinorrhea, congestion CARDIOVASCULAR: Denies chest pain, palpitations, or edema. RESPIRATORY: Denies cough or dyspnea. GASTROINTESTINAL: Denies abdominal pain, nausea, vomiting, or diarrhea. SKIN: reports scabbed wounds to legs with redness and warmth MUSCULOSKELETAL: Denies back pain, joint pain, or myalgia. NEUROLOGIC: Denies headache, numbness, tingling, or weakness. [facility] Past Medical History Medical History Anxiety BPH (benign prostatic hyperplasia) CAD (coronary artery disease) CHF (congestive heart failure) Randee's disease HTN (hypertension) Obesity NIC (obstructive sleep apnea) Pure hypercholesterolemia Surgical History Surgical History History of coronary artery stent placement Family History Family History Father Cerebrovascular accident Patient's father is Sibling Family history of lung cancer Patient's sister is Patient's brother is Mother Family history of lung cancer Patient's mother is Sibling Heart disease Other Family history of cardiovascular disease Social History Social History Smoking status: Never smoker Second hand tobacco smoke exposure: No Smoking end date: 11/10/69 Alcohol intake: current Drinks per week: 5 Alcohol use details: Beer Substance use: never Substance use type: does not use Living arrangements: with family Additional living arran
== END 2023-10-15 17:27 | disposition home or self-care (01) ==
PROVIDERS: Emergency Provider Nurse Practitioner Family; PCP Internal Medicine
DX: L03.115 Cellulitis of right lower limb (principal); I25.10 Atherosclerotic heart disease of native coronary artery without angina pectoris; I11.0 Hypertensive heart disease with heart failure; I50.9 Heart failure, unspecified; Z79.82 Long term (current) use of aspirin; Z79.899 Other long term (current) drug therapy
CPT/HCPCS: 99213; G0463

== ENCOUNTER 2023-10-23 10:19 | Emergency (ER) | payer MEDICARE, OTHER, SELFPAY ==
--- NOTE | ~2023-10-23 | XR_ITS ---
EXAMINATION: XR tibia fibula LT 2V DATE: 10/23/2023 12:49 INDICATION: Left lower leg injury and pain and swelling. TECHNIQUE: 2 views of left tibia and fibula on 4 radiographs were obtained. COMPARISON: None. FINDINGS: Bone alignment is normal. No fracture. There is mild tricompartmental osteoarthritis of lef t knee. No knee joint effusion. IMPRESSION: 1. Mild left knee osteoarthritis. Reviewed, dictated and finalized at location A. R SAW OPERATOR
--- NOTE | ~2023-10-23 | XR_ITS ---
EXAMINATION: XR ankle LT 2V DATE: 10/23/2023 12:49 INDICATION: Left ankle injury and pain and swelling. TECHNIQUE: 2 views of left ankle were obtained. COMPARISON: None. FINDINGS: Bone alignment is normal. No fracture. Joint spaces are normal. There are enthesophytes at the posterior and plantar aspects of calcaneal tuberosity. There is ankle soft tissue swelling. IMPRESSION: 1. No fracture. Reviewed, dictated and finalized at location A. R BLENDER IMPRESSION: 1. No fracture.
--- NOTE | ~2023-10-23 | XR_ITS ---
EXAMINATION: XR foot LT min 3V DATE: 10/23/2023 12:49 INDICATION: Left foot injury and swelling and pain. TECHNIQUE: 4 views of left foot were obtained. COMPARISON: None. FINDINGS: Bone alignment is normal. No fracture. Joint spaces are normal. There are enthesophytes at the posterior and plantar aspects of calcaneal tuberosity. IMPRESSION: 1. No fracture. Reviewed, dictated and finalized at location A. ASSEMBLER IMPRESSION: 1. No fracture.
--- NOTE | ~2023-10-23 | US_ITS ---
EXAMINATION: US venous doppler [facility] DATE: 10/23/2023 13:55 INDICATION: Left lower limb swelling TECHNIQUE: Herring scale images without and with compression and Doppler images of the left lower extrem ity veins were obtained. COMPARISON: None FINDINGS: The left common femoral vein, profunda femoral vein, femoral vein, popliteal vein, peroneal trunk, posterior tibial veins, and greater saphenous vein are patent. IMPRESSION: 1. Patent left lower extremity veins. No evidence of deep venous thrombosis. Reviewed, dictated and finalized at location L. L MOULDER
[2023-10-23 10:45] VITALS: BP 134/65; PULSE 63; RESP 18; TEMP 36.9; O2SAT 99
[2023-10-23 11:30] VITALS: BP 135/76; PULSE 60; RESP 18; O2SAT 98
--- NOTE | 2023-10-23 11:35 | ED.LOWEXIN ---
HPI - Extremity Injury (Lower) General Chief Complaint: Extremity Injury, Lower Stated Complaint: Left leg injury Time Seen by Provider: 10/23/23 11:35 Source: patient Mode of arrival: wheelchair Limitations: no limitations History of Present Illness HPI Narrative: Patient is a pleasant 78-year-old male with past medical history is noted below who presents emergency department today ambulatory with a steady gait for evaluation of concerns of swelling, redness to scabbed wounds to the left lower leg. He states that this started after he had fallen on the 08 of October when he was trying to put up a concrete step and it fell down on his leg causing it to scrape when coming down- it did not fall directly onto the leg. He is on cephalexin currently. He denies any fever chills. No numbness or tingling to the leg, denies any drainage, decreased range of motion. Denies any nausea, vomiting diarrhea, chest pain, shortness a breath. States that he has tried elevated at times.denies known hx of MRSA. he states that the area circled actually has seemed to improve some. Related Data Home Medications Medication Instructions Recorded Confirmed aspirin 81 mg tablet,delayed 81 mg PO HS 04/14/20 10/15/23 release atorvastatin 10 mg tablet 10 mg PO HS 04/14/20 10/15/23 coenzyme Q10 100 mg capsule 100 mg PO DAILY 04/14/20 10/15/23 (CoQ-10) krill oil 500 mg capsule 500 mg PO DAILY 04/14/20 10/15/23 losartan 100 mg tablet 100 mg PO QAM 04/14/20 10/15/23 multivitamin-ferrous 1 tablet PO DAILY 04/14/20 10/15/23 fumarate-folic acid 18 mg-400 mcg tablet (Centrum) testosterone cypionate 100 mg/mL 100 mg IM .q 10 days 04/14/20 10/15/23 intramuscular oil (Depo-Testosterone) vit 1 cap PO BID 04/14/20 10/15/23 C,E,zinc,Ki-ttleu-4-lutein-zeaxanthin 250 mg-2.5 mg-0.5 mg capsule amlodipine 5 mg tablet 5 mg PO HS 06/19/21 10/15/23 furosemide 20 mg tablet 20 mg PO QAM 04/25/23 10/15/23 melatonin 5 mg tablet 5 mg PO HS 06/10/23 10/15/23 terbinafine HCl 250 mg tablet 250 mg PO DAILY 06/10/23 10/15/23 Allergies Allergy/AdvReac Type Severity Reaction Status Date / Time meloxicam Allergy Unknown Verified 10/15/23 16:48 trazodone Allergy Unknown Verified 10/15/23 16:48 Review of Systems Review of Systems: CONSTITUTIONAL: Denies fever, chills, or sweats. CARDIOVASCULAR: Denies chest pain, palpitations, or edema. RESPIRATORY: Denies cough or dyspnea. SKIN: Denies rash or itching. MUSCULOSKELETAL: + scabs to left lower leg with swelling/redness. Denies back pain, joint pain, or myalgia. NEUROLOGIC: Denies headache, numbness, or weakness. PSYCHIATRIC: Denies anxiety or depression. All systems reviewed & are unremarkable except as noted in HPI and below PMFSH Past Medical History Medical History Anxiety BPH (benign prostatic hyperplasia) CAD (coronary artery disease) CHF (congestive heart failure) Randee's disease HTN (hypertension) Obesity NIC (obstructive sleep apnea) Pure hypercholesterolemia Surgical History Surgical History History of coronary artery stent placement Family History Family History Father Cerebrovascular accident Patient's father is Sibling Family history of lung cancer Patient's sister is Patient's brother is Mother Family history of lung cancer Patient's mother is Sibling Heart disease Other Family history of cardiovascular disease Social History Social History Smoking status: Never smoker Second hand tobacco smoke exposure: No Smoking end date: 11/10/69 Alcohol intake: current Drinks per week: 5 Alcohol use details: Beer Substance use: never Substance use type: does not use Living arrangements: with [facility]
[2023-10-23 12:37] VITALS: BP 129/73; PULSE 62; RESP 16; O2SAT 99
[2023-10-23 12:43] LABS: Basophils Absolute Auto 0.1 K/mm3 (0.0-0.1); Basophils Percent Auto 0.7 % (0.2-1.2); Eosinophils Absolute Auto 0.2 K/mm3 (0-0.3); Eosinophils Percent Auto 2.1 % (0-4.4); Hematocrit 48.7 % (42.0-52.0); Hemoglobin 16.3 g/dL (14.0-18.0); Immature Granulocyte Absolute 0.01 K/mm3 (0.00-0.031); Immature Granulocyte Percent A 0.1 % (0-0.5); Lymphocytes Absolute Auto 1.45 K/mm3 (0.9-3.2); Mean Corpuscular HGB Conc 33.5 g/dl (32-36); Mean Corpuscular Hemoglobin 30.7 pg (26-34); Mean Corpuscular Volume 91.7 fl (80-100); Mean Platelet Volume 10.2 fl (7.4-10.4); Monocytes Absolute Auto 0.7 K/mm3 (0.1-0.6); Monocytes Percent Auto 9.4 % (2.6-8.5); Neutrophils Absolute Auto 4.9 K/mm3 (1.3-6.7); Neutrophils Percent Auto 67.7 % (45.5-73.1); Platelet Count Result 177 k/mm3 (150-375); Red Blood Count 5.31 M/mm3 (4.6-6.20); Red Cell Distribution Width 12.1 % (11.5-14.5); White Blood Count 7.3 K/mm3 (4.5-10.0)
[2023-10-23 12:53] LABS: Alanine Aminotransferase 33 U/L (6-50); Albumin Level 4.5 g/dL (3.5-5.1); Alkaline Phosphatase 61 U/L (38-126); Anion Gap 5 mmol/L (8-16); Aspartate Amino Transferase 31 U/L (17-59); Bilirubin,Total 1.7 mg/dL (0.2-1.3); Blood Urea Nitrogen 16 mg/dL (9-20); Calcium 9.6 mg/dL (8.4-10.2); Carbon Dioxide 30 mmol/L (22-30); Chloride 103 mmol/L (98-107); Estimated Glomerular Filt Rate > 60; Glucose 101 mg/dL (65-110); Potassium 4.1 mmol/L (3.4-5.0); Sodium 138 mmol/L (137-145)
[2023-10-23 12:57] LABS: Prothrombin Time 14.2 Seconds (11.1-14.7)
[2023-10-23 13:06] LABS: D Dimer 0.94 ug/mL (<0.48)
== END 2023-10-23 14:48 | disposition home or self-care (01) ==
PROVIDERS: Emergency Provider Nurse Practitioner; PCP Internal Medicine
DX: L03.116 Cellulitis of left lower limb (principal); I25.10 Atherosclerotic heart disease of native coronary artery without angina pectoris; I50.9 Heart failure, unspecified; I11.0 Hypertensive heart disease with heart failure; N40.0 Benign prostatic hyperplasia without lower urinary tract symptoms; E78.00 Pure hypercholesterolemia, unspecified; E06.3 Autoimmune thyroiditis; E66.9 Obesity, unspecified; G47.33 Obstructive sleep apnea (adult) (pediatric); M17.12 Unilateral primary osteoarthritis, left knee; Z79.82 Long term (current) use of aspirin
CPT/HCPCS: 36415; 73590; 73600; 73630; 80053; 85025; 85380; 85610; 93971; 99284

== ENCOUNTER 2024-11-20 09:06 | Emergency (ER) | payer MEDICARE, OTHER, SELFPAY ==
--- NOTE | ~2024-11-20 | XR_ITS ---
XR lumbar spine 2-3V DATE: 11/20/2024 11:53 INDICATION: Low back and hip pain. No known injury. TECHNIQUE: AP, lateral, coned lateral lumbosacral views COMPARISON: 10/08/2023 CT thoracic and lumbar spine FINDINGS: Osteopenia. There is moderate degenerative disc disease at L1-2 with prominent spurring. Moderate degenerative disc disease at L5-S1 No fracture or bone destruction is evident. Included lower thoracic and lumbar pedicles are intact. There is prominent degenerative change of the apophyseal joints, particularly at L4-5 and L5-S1 with associated grade 1 anterolisthesis at L4-5. The sacroiliac joints are intact. Abdominal aortic calcification without evidence of aneurysm IMPRESSION: Grade 1 anterolisthesis at L4-5 due to degenerative change at the possible joints Moderate degenerative disc disease and prominent spurring at L1-2 Moderate degenerative disease at L5-S1 Reviewed, dictated and finalized at location A. IC ADDRESS SERVICER IMPRESSION: Grade 1 anterolisthesis at L4-5 due to degenerative change at the p ossible joints Moderate degenerative disc disease and prominent spurring at L1-2 Moderate degenerative disease at L5-S1
--- NOTE | ~2024-11-20 | XR_ITS ---
XR hip RT min 2V DATE: 11/20/2024 11:53 INDICATION: Low back pain, right hip pain TECHNIQUE: AP and lateral views of right hip COMPARISON: None FINDINGS: No fracture or dislocation, avascular necrosis or bone destruction of the right hip is evid ent. Right hip joint space appears relatively preserved. Radiopaque seeds the prostate gland. No osteoblastic lesions are identified. IMPRESSION: No significant abnormality right hip Reviewed, dictated and finalized at location A. R OPTICS SUPERVISOR
[2024-11-20 09:18] VITALS: BP 134/71; PULSE 64; RESP 16; TEMP 37; O2SAT 96
--- NOTE | 2024-11-20 11:36 | ED_ITS ---
HPI - Back Pain/Injury General Chief Complaint: Back Pain/Injury Stated Complaint: back pain Time Seen by Provider: 11/20/24 11:25 History of Present Illness HPI Narrative: 79-year-old male with a history of coronary disease, heart failure, hypertension. Patient presents to the emergency department for evaluation of bilateral low back pain and right hip pain. He states has been going on for last day and he has been taking Advil without any relief of his symptoms. Feels like a tight band sensation in his back that is worse with rest and lying flat on his back. Improves with movement. He states he did not have any kind of specific injuries or trauma. No saddle anesthesias, no bowel or bladder incontinence, no weakness in the limbs or sensory changes. Was otherwise in his normal state of health but states that he did injure his lumbar spine about several years ago during a fall but did not have any kind surgeries or fractures to his knowledge. He was otherwise in his normal state of health, has an upcoming international trip and enquiring about pain control. Related Data Home Medications ?Medication ?Instructions ?Recorded ?Confirmed ?Last Taken ?Type aspirin 81 mg tablet,delayed 81 mg PO HS 04/14/20 04/28/24 06/23/23 History release atorvastatin 10 mg tablet 10 mg PO 04/14/20 04/28/24 06/23/23 History coenzyme Q10 100 mg capsule 100 mg PO DAILY 04/14/20 04/28/24 06/23/23 History (CoQ-10) losartan 100 mg tablet 100 mg PO QAM 04/14/20 04/28/24 06/23/23 History multivitamin-ferrous 1 tablet PO DAILY 04/14/20 04/28/24 06/23/23 History fumarate-folic acid 18 mg-400 mcg tablet (Centrum) testosterone cypionate 100 mg/mL 100 mg IM .q 10 days 04/14/20 04/28/24 06/23/23 History intramuscular oil (Depo-Testosterone) vit 1 cap PO BID 04/14/20 04/28/24 06/23/23 History C,E,zinc,Vt-jwwzv-6-lutein-zeaxanthin 250 mg-2.5 mg-0.5 mg capsule amlodipine 5 mg tablet 5 mg PO HS 06/19/21 04/28/24 06/23/23 History furosemide 20 mg tablet 20 mg PO QAM 04/25/23 04/28/24 06/23/23 History melatonin 5 mg tablet 5 mg PO HS 06/10/23 04/28/24 06/23/23 History Allergies Allergy/AdvReac Type Severity Reaction Status Date / Time meloxicam Allergy Unknown Verified 11/20/24 09:18 trazodone Allergy Unknown Verified 11/20/24 09:18 Review of Systems Review of Systems: As reviewed above in [facility] Past Medical History Medical History Obesity Randee's disease BPH (benign prostatic hyperplasia) NIC (obstructive sleep apnea) HTN (hypertension) CAD (coronary artery disease) CHF (congestive heart failure) Anxiety Pure hypercholesterolemia Surgical History Surgical History History of coronary artery stent placement Family History Family History Father Cerebrovascular accident Patient's father is Sibling Family history of lung cancer Patient's sister is Patient's brother is Mother Family history of lung cancer Patient's mother is Sibling Heart disease Other Family history of cardiovascular disease Social History Social History Smoking status: Never smoker Second hand tobacco smoke exposure: No Smoking end date: 11/10/69 Alcohol intake: current Drinks per week: 5 Alcohol use details: Beer Substance use: never Substance use type: does not use Living arrangements: with family Additional living arrangements comments: Spiritual care concerns: No Exam Narrative: GENERAL: [Well-appearing, well-nourished, and in no acute distress.] HEAD: [Normocephalic, atraumatic.] EYES: [PERRLA and EOMI.] ENT: Nares clear, no rhinorrhea or epistaxis. Mucous membranes moist. NECK: Supple. CHEST: [Clear to auscultation. No respiratory distress.] HEART: [Regular rate and rhythm]. No murmur heard. [Normal peripheral pulses.] ABDOMEN: [Soft, nondistended], [nontender], [No rigidity or guarding] EXTREMITIES: Normal range of motion. [No edema.] Some focal tenderness over the right sacroiliac joint, no tenderness over the iliac crest, no midline cervical thoracic or lumbar spinal tenderness. SKIN: Warm, dry, no rash. NEURO: [No focal deficits]. Alert and oriented [x3.] No saddle anesthesias, no sensory changes in the bilateral lower extremities, full range of motion of bilateral lower extremities, good EHL and FHL with 5/5 strength, hip flexion and extension full bilaterally. Ambulating without an ataxic or antalgic gait. PSYCH: [Normal mood and affect.] Course Vital Signs Vital signs: Vital Signs Temperature 37.0 C 11/20/24 09:18 Pulse Rate 64 11/20/24 09:18 Respiratory Rate 16 11/20/24 09:18 Blood Pressure 134/71 11/20/24 09:18 Pulse Oximetry 96 11/20/24 09:18 Oxygen Delivery Room Air 11/20/24 09:18 Temperature 37.0 C 11/20/24 09:18 Pulse Rate 62 11/20/24 12:00 Respiratory Rate 18 11/20/24 12:00 Blood Pressure 141/78 H 11/20/24 12:00 Pulse Oximetry 99 11/20/24 12:00 Oxygen Delivery Room Air 11/20/24 09:18 MDM - Back Pain/Injury MDM Narrative Medical decision making narrative: 79-year-old male with history of coronary disease, CHF hypertension was well controlled. Presents to the emergency department for back pain without appreciable injury. States that he woke up yesterday with some mild back pain in his right-sided hip and low back. Denies any red flag symptoms of any kind of neurological complaints. He is otherwise well-appearing, ambulates with steady non ataxic or antalgic gait. Full strength and sensation throughout both arms and legs, no red flag symptoms on his history for considerations for spinal pathology such as cauda equina or conus medullaris. No appreciable injuries recently. He has focal tenderness over the sacroiliac joint of the right-sided but no restricted range of motion. X-rays were obtained of the lumbar spine as well as the right hip and he was provided tramadol and Robaxin for analgesia and re-evaluated. X-ray show a grade 1 anterolisthesis at L4-L5 likely secondary degenerative changes, degenerative disc disease with moderate prominent spurring, degenerative disease at L4-L5 L5 S1. No osseous abnormalities in the right hip. Patient was re-evaluated and felt improved after pain control medications here. He was made aware of his x-ray findings and given his lack of red flag symptoms and clinical improvement I believe he can safely be discharged home with regular primary care provider follow-up, low back pain exercises and return precautions as well as pain control medications. He was sent with prescription medications including Tylenol, Robaxin, steroid pack. Patient verbalized understanding and was safe for discharge at this time. Medical Records Attestation: I reviewed the patient's medical records. Imaging Data Attestation: I personally reviewed and interpreted this imaging study as follows: My impression: Impressions Lumbar Spine X-Ray 11/20/24 12:01 IMPRESSION: Grade 1 anterolisthesis at L4-5 due to degenerative change at the possible joints Moderate degenerative disc disease and prominent spurring at L1-2 Moderate degenerative disease at L5-S1 Hip X-Ray 11/20/24 12:06 IMPRESSION: No significant abnormality right hip Discharge Plan Discharge Clinical Impression: Low back pain Patient Disposition: Home, Self-Care Condition: Stable Instructions: Antibiotic Form, Acute Low Back Pain (ED), Lower Back Exercises (ED) Additional Instructions: Your x-ray shows some degenerative disc disease in her low lumbar spine which is likely was causing her symptomatology. We will send you home with some pain control medications as well as anti-inflammatory measures with steroids so he can have some pain relief on your trip. Return with any new or worsening concerns otherwise follow-up with your regular doctor for a physical therapy and rehabilitation referral. Return to the ER if you have increased pain in your back, you develop lower extremity weakness/numbness/paralysis, you have numbness or tingling in your private parts, or you are unable to control your ability to urinate/stool. Patient Language: Zimbabwean Prescriptions: New acetaminophen [Tylenol Extra Strength] 500 mg tablet 1,000 mg PO TID PRN (Reason: pain) Qty: 30 0RF methocarbamol 750 mg tablet 750 mg PO TID PRN (Reason: pain) Qty: 20 0RF methylprednisolone [Medrol (Bhavesh)] 4 mg tablets,dose pack See Rx Instructions .ROUTE .COMPLEX Qty: 21 0RF Rx Instructions: orally per package directions No Action losartan 100 mg tablet 100 mg PO QAM atorvastatin 10 mg tablet 10 mg PO HS aspirin 81 mg tablet,delayed release (DR/EC) 81 mg PO HS Centrum 18-400 mg-mcg tablet 1 tablet PO DAILY coenzyme Q10 [CoQ-10] 100 mg capsule 100 mg PO DAILY vit C,E,Zn,Xn-uhtcn4-olf-zeax 250-2.5-0.5 mg capsule 1 cap PO BID testosterone cypionate [Depo-Testosterone] 100 mg/mL oil 100 mg IM .q 10 days Rx Instructions: as a single dose carvedilol 25 mg tablet 37.5 mg PO Q12H Qty: 180 1RF Rx Instructions: must administer with a meal/food furosemide 20 mg tablet 20 mg PO QAM melatonin 5 mg Tablet 5 mg PO HS amlodipine 5 mg tablet 5 mg PO HS Follow-up/Referrals: Casa,Doe Mcdowell DO [Non-Staff] - Time of Disposition: 12:52
[2024-11-20] MEDS: methocarbamoL 750 MG TABLET PO (11:58)
[2024-11-20] MEDS: traMADol HCL (*CRX) 25 MG TABLET PO (11:59)
[2024-11-20 12:00] VITALS: BP 141/78; PULSE 62; RESP 18; O2SAT 99
== END 2024-11-20 13:17 | disposition home or self-care (01) ==
PROVIDERS: Emergency Provider Student in an Organized Health Care Education/Training Program; PCP Internal Medicine
DX: M54.50 Low back pain, unspecified (principal); I25.10 Atherosclerotic heart disease of native coronary artery without angina pectoris; I11.0 Hypertensive heart disease with heart failure; I50.9 Heart failure, unspecified; Z95.5 Presence of coronary angioplasty implant and graft
CPT/HCPCS: 72100; 73502; 99283; A9270

== ENCOUNTER 2025-10-26 08:42 | Outpatient (CLI) | payer MEDICARE, SELFPAY ==
--- NOTE | ~2025-10-26 | US_ITS ---
EXAM/PROCEDURE: US art doppler w press LE BI HISTORY: PAD COMPARISON: None available. TECHNIQUE: ABIs FINDINGS: Right and left brachial systolic pressure readings are 119 and 133 Right and left lower extremity segmental or pressure readings as follows: Distal thigh: 159 and 165 Popliteal: 162 and 168 Dorsalis pedis: 144 and 137 Posterior tibial: 153 and 157 Great toe: 107 and 127 RIGHT AND LEFT ABIs are 1.15 and 1.18 respectively. TBI's are 0.80 and 0.95 Plethysmography appears slightly broadened but otherwise normal. IMPRESSION: Both ABIs within normal limits. Reviewed, dictated and finalized at location A. TECHNICAL ARCHITECT
--- OUTSIDE RECORDS SUMMARY | 2025-10-26 09:12 | XMS_ITS | Patient Health Record ---
Author Organization [facility] Address [address] [place] [address] Care Team Providers Care Section Chief Name Role Phone RAFFAELE WADE Unavailable [phone] Reason For Referral No Information Plan Of Treatment No Information
--- OUTSIDE RECORDS SUMMARY | 2025-10-26 09:12 | XMS_ITS | Clinical Summary ---
Author Organization [facility] Address [address] [place] [address] Care Team Providers Care Adult School Counselor Name Role Phone JanethiamoDe Samra TAYLOR Primary Care Provider [phone] Source Comments [facility],non-owned Affiliates and Associated Physician Practices is amultiple site organization consisting of ambulatory clinics and hospital sitesin [place], [place], [place] and [place]. This disclosure is being madepursuant to the Care Everywhere program and may not contain all informatio navailable regarding this patient. Last updated 18.[facility] Social History Tobacco Use Types Packs/Day Years Used Date Smoking Tobacco: Never Assessed Sex and Gender Information Value Date Recorded Sex Assigned at Not on file Legal Sex Male 9:42 AM CDT Gender Identity Not on file Sexual Orientation Not on file Plan of Treatment Health Maintenance Due Date Last Done Comments HEPATITIS C SCREENING 07/07/1965 DTAP/TDAP/TD VACCINES (1 - Tdap) 1966 PNEUMOCOCCAL VACCINE 50+ (1 of 1 - PCV) 1997 ZOSTER VACCINE (1 of 2) 1997 Respiratory Syncytial Virus (RSV) Vaccine Pt: or over 60 yrs (1 - 1-dose 75+ series) 2022 DEPRESSION SCREENING 11/10/2024 MEDICARE AWV CALENDAR YEAR 2024 COVID-19 VACCINE ( - 2024-2 6 season) 2025 INFLUENZA VACCINE (#1) 2025 HEPATITIS B VACCINE Aged Out No longe r eligible based on patient's age to complete this topic HIB VACCINE Aged Out No longer eligi ble based on patient's age to complete this topic HPV VACCINE Aged Out No longer eligi ble based on patient's age to complete this topic MENINGOCOCCAL (Group B) VACC INE SHARED DECISION-MAKING Aged Out No longer eligibl e based on patient's age to complete this topic MENINGOCOCCAL GROUPS A/C/Y/W VACCINE Aged Out No longer eligible b ased on patient's age to complete this topic Insurance AET[employer] [facility] MANAGED MEDICARE ADV [facility] MANAGED MEDICARE ADV Care Teams Adult School Counselor Relationship Specialty Start Date End Date Doe Cormier DO [address] [facility] [address] [place] [address] PCP - General 06/29/18
--- OUTSIDE RECORDS SUMMARY | 2025-10-26 09:12 | XMS_ITS | Encounter Summary ---
Author Organization [facility] Address 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 Gender Identity Not on file Sexual Orientation Not on file documented as of this encounter Plan of Treatment Upcoming Encounters Date Type Department Care Team (Late st Contact Info) Description 02/02/2026 10:00 AM CDT Office Visit [facility] At [address] [place] [address] Aly Gomez MD [address] [place] [address] [address] [place] [address] 05/15/2026 10:15 AM CDT Office Visit [facility] AT [address] [place] [address] Aurora Shipley NP [address] [place] [address] [address] [place] [address] documented as of this encounter Procedures Procedure Name Priority Date/Time Associated Diagnosis Comments TROPONIN (W/REFLEX CKMB/CK) Routine 05/06/2006 7:05 AM CDT CBC WITH DIFFERENTIAL Routine 05/06/2006 7:05 AM CDT CBC WITH DIFFERENTIAL Routine 05/06/2006 7:05 AM CDT POC ACTIVATED CLOTTING TIME Routine 05/05/2006 7:46 PM CDT CBC WITH DIFFERENTIAL Routine 05/05/2006 7:30 PM CDT CBC WITH DIFFERENTIAL Routine 05/05/2006 7:30 PM CDT POC ACTIVATED CLOTTING TIME Routine 05/05/2006 6:02 PM CDT TROPONIN (W/REFLEX CKMB/CK) Routine 05/05/2006 4:28 PM CDT POC ACTIVATED CLOTTING TIME Routine 05/05/2006 3:40 PM CDT documented in this encounter Results * (ABNORMAL) CBC WITH DIFFERENTIAL (05/06/2006 7:05 AM CDT) NEUTROPHILS 71(H) 45 - 70 % INTERFAC E SYSTEM LYMPHOCYTES 19 16 - 45 % INTERFAC E SYSTEM MONOCYTES 8 3 - 13 % INTERFACE SYSTEM EOSINOPHILS 1 0 - 7 % INTERFAC E SYSTEM BASOPHILS 0 0 - 2 % INTERFACE SYSTEM NEUTROPHIL ABSOLUTE 6.18 1.90 - 7.00 K/uL INTERFACE SYSTEM LYMPHOCYTE ABSOLUTE 1.66 0.70 - 4.50 K/uL INTERFACE SYSTEM MONOCYTE ABSOLUTE 0.73 0.10 - 1.30 K/uL INTERFACE SYSTEM EOSINOPHIL ABSOLUTE 0.09 0.00 - 0.70 K/uL INTERFACE SYSTEM BASOPHILS ABSOLUTE 0.02 0.00 - 0.20 K/uL INTERFACE SYSTEM 05/06/2006 7:05 AM CDT Nino Walton MD HEMATOLOGY ORDERABLES Fin al Result Performing Organization Address City/[facility] Co de Phone Number INTERFACE SYSTEM Refer to clinic/hospital department * CBC WITH DIFFERENTIAL (05/06/2006 7:05 AM CDT) Pathologist [facility] WBC 8.7 4.0 - 9.8 K/uL INTERFACE SYSTEM RBC 5.01 4.50 - 5.40 M/uL INTERFACE SYSTEM HEMOGLOBIN 14.8 13.6 - 16.5 g/dL INTERFACE SYSTEM HEMATOCRIT 42.3 40.0 - 48.0 % INTERFACE SYSTEM MCV 84.4 82.0 - 99.0 fL INTERFACE SYSTEM MCH 29.5 27.2 - 32.6 pg INTERFACE SYSTEM MCHC 35.0 31.5 - 35.5 % INTERFACE SYSTEM RDW 12.6 11.5 - 14.5 % INTERFACE SYSTEM RDW-STDEV 38.2 37.1 - 48.7 fL INTERFACE SYSTEM PLATELETS 200 140 - 350 K/uL INTERFACE SYSTEM MPV 10.6 9.3 - 12.4 fL INTERFACE SYSTEM 05/06/2006 7:05 AM CDT Nino Walton MD HEMATOLOGY ORDERABLES Fin al Result Performing Organization Address [facility] Phone Number INTERFACE SYSTEM Refer to clinic/hospital department * TROPONIN (W/REFLEX CKMB/CK) (05/06/2006 7:05 AM CDT) [facility] TROPONIN T <0.01 <=0.03 ng/mL INTERFACE SYSTEM TROPONIN T INTERP Negative INTERFACE SYSTEM 05/06/2006 7:05 AM CDT Nino Walton MD CHEMISTRY ORDERABLES Rachel l Result Performing Organization Address City/[facility] Co de Phone Number INTERFACE SYSTEM Refer to clinic/hospital department * POC ACTIVATED CLOTTING TIME (05/05/2006 7:46 PM CDT) Pathologist [facility] ACT POC 118 Seconds INTERFACE SYSTEM Comment: Note sheath pull range change effective 05/02/2006. ACT value for sheath pull at [facility] has been established to be < or = to 1 40. (See also Nursing Procedures for sheath pull in related nursing areas) 05/05/2006 7:46 PM CDT Nino Walton MD POINT OF CARE TESTING Fin al Result Performing Organization Address [facility] Phone Number INTERFACE SYSTEM Refer to clinic/hospital department * CBC WITH DIFFERENTIAL (05/05/2006 7:30 PM CDT) NEUTROPHILS 49 45 - 70 % INTERFAC E SYSTEM LYMPHOCYTES 40 16 - 45 % INTERFAC E SYSTEM MONOCYTES 8 3 - 13 % INTERFACE SYSTEM EOSINOPHILS 2 0 - 7 % INTERFAC E SYSTEM BASOPHILS 0 0 - 2 % INTERFACE SYSTEM NEUTROPHIL ABSOLUTE 2.88 1.90 - 7.00 K/uL INTERFACE SYSTEM LYMPHOCYTE ABSOLUTE 2.32 0.70 - 4.50 K/uL INTERFACE SYSTEM MONOCYTE ABSOLUTE 0.49 0.10 - 1.30 K/uL INTERFACE SYSTEM EOSINOPHIL ABSOLUTE 0.13 0.00 - 0.70 K/uL INTERFACE SYSTEM BASOPHILS ABSOLUTE 0.02 0.00 - 0.20 K/uL INTERFACE SYSTEM 05/05/2006 7:30 PM CDT Nino Walton MD HEMATOLOGY ORDERABLES Fin al Result Performing Organization Address [facility] Phone Number INTERFACE SYSTEM Refer to clinic/hospital department * (ABNORMAL) CBC WITH DIFFERENTIAL (05/05/2006 7:30 PM CDT) WBC 5.8 4.0 - 9.8 K/uL INTERFACE SYSTEM RBC 4.63 4.50 - 5.40 M/uL INTERFACE SYSTEM HEMOGLOBIN 13.9 13.6 - 16.5 g/dL INTERFACE SYSTEM HEMATOCRIT 38.3(L) 40.0 - 48.0 % INTERFACE SYSTEM MCV 82.7 82.0 - 99.0 fL INTERFACE SYSTEM MCH 30.0 27.2 - 32.6 pg INTERFACE SYSTEM MCHC 36.3(H) 31.5 - 35.5 % INTERFACE SYSTEM RDW 12.2 11.5 - 14.5 % INTERFACE SYSTEM RDW-STDEV 36.8(L) 37.1 - 48.7 fL INTERFACE SYSTEM PLATELETS 163 140 - 350 K/uL INTERFACE SYSTEM MPV 10.4 9.3 - 12.4 fL INTERFACE SYSTEM 05/05/2006 7:30 PM CDT Nino Walton MD HEMATOLOGY ORDERABLES Fin al Result Performing Organization Address [facility] Phone Number INTERFACE SYSTEM Refer to clinic/hospital department * POC ACTIVATED CLOTTING TIME (05/05/2006 6:02 PM CDT) ACT POC 162 Seconds INTERFACE SYSTEM Comment: Note sheath pull range change effective 05/02/2006. ACT value for sheath pull at [facility] has been established to be < or = to 1 40. (See also Nursing Procedures for sheath pull in related nursing areas) 05/05/2006 6:02 PM CDT Nino Walton MD POINT OF CARE TESTING Fin al Result Performing Organization Address [facility] Phone Number INTERFACE SYSTEM Refer to clinic/hospital department * TROPONIN (W/REFLEX CKMB/CK) (05/05/2006 4:28 PM CDT) TROPONIN T <0.01 <=0.03 ng/mL INTERFACE SYSTEM TROPONIN T INTERP Negative INTERFACE SYSTEM 05/05/2006 4:28 PM CDT Nino Walton MD CHEMISTRY ORDERABLES Rachel l Result Performing Organization Address [facility] Phone Number INTERFACE SYSTEM Refer to clinic/hospital department * POC ACTIVATED CLOTTING TIME (05/05/2006 3:40 PM CDT) ACT POC 259 Seconds INTERFACE SYSTEM Comment: Note sheath pull range change effective 05/02/2006. ACT value for sheath pull at [facility] has been established to be < or = to 1 40. (See also Nursing Procedures for sheath pull in related nursing areas) 05/05/2006 3:40 PM CDT Nino Walton MD POINT OF CARE TESTING Fin al Result INTERFACE SYSTEM Refer to clinic/hospital department documented in this encounter Visit Diagnoses Diagnosis Coronary atherosclerosis of [place] coronary artery- Primary documented in this encounter Care Teams Chair Frame Builder Relationship Specialty Start Date End Date Blas Wilkinson DO [address] [facility] [address] [place] [id number] PCP - General Internal Medicine 09/15/24 documented as of this encounter
--- OUTSIDE RECORDS SUMMARY | 2025-10-26 09:12 | XMS_ITS | Clinical Summary ---
Author Organization [facility] Address [address] [facility] [place] [address] Phone Care Team Providers Care Wind Turbine Blade Repair Technician Name Role Phone Yobany Wilkinsondie Samra TAYLOR Primary Care Provider [phone] Allergies Active Allergy Reactions Criticality Noted Date Comments Meloxicam Abdominal Pain Low 05/12/2017 Trazodone Other (See Comments) 09/26/2015 Medications aspirin (ECOTRIN EC) 81 mg Tablet, Delayed Release (E.C.) Take 81 mg by mouth daily. Active multivitamin,tx -iron-ca-min (THERA-M) 27-0.4 mg Tablet Take 1 Tablet by mouth daily. Active coenzyme Q10 Capsule Take 10 mg by mouth daily. Active krill oil 500 mg Capsule Take by mouth. Acti ve testosterone cypionate (DEPO-TESTOSTER ONE) 100 mg/mL Oil Inject 0.5 mg by intramuscular injection one time only. Active losartan (COZAAR) 100 mg tablet TAKE 1 TABLET(100 MG) BY MOUTH DAILY 30 Tablet 5 8 Active melatonin 3 mg Tablet Take 6 mg by mouth nightly as needed for Insomnia. Active carvedilol (COREG) 25 mg tablet Take 1.5 Tablets (37.5 mg) by mouth 2 times daily with meals. 120 Tablet 8 Active vit A/vit C/vit E/zinc/copper (PRESERVISION AREDS ORAL) Take 120 mg by mouth. Active furosemide (LASIX) 20 mg tablet Take 1 Tablet (20 mg) by mouth daily. 90 Tablet 1 1 Active terbinafine HCL 250 mg tablet Take 250 mg by mouth daily. 1 Active sildenafiL (VIAGRA) 100 mg tablet Take 50 mg by mouth 1 time daily as needed. 3 Active rosuvastatin (Crestor) 10 mg tabletIndicatio ns:hyperlipidem ia Take 1 Tablet (10 mg) by mouth daily. 100 Tablet 3 4 Active buPROPion HCL (WELLBUTRIN XL) 300 mg Extended Release 24 hour tablet Take 300 mg by mouth. 4 Active dicyclomine (BENTYL) 10 mg capsule Take 10 mg by mouth. 4 Active LACTOBACILLUS ACIDOPHILUS ORAL Take by mouth. 4 Active spironolactone (ALDACTONE) 25 mg tablet Take 1 Tablet (25 mg) by mouth daily. 90 Tablet 3 5 Active Active Problems Patient Care Coordination No te Formatting of this note migh t be different from the original. Aly Gomez MD--Cleaning Specialist ([facility] Heart [facility] V[facility] @ ) Problem Noted Date Diagnosed Date Chest pain 06/07/2024 NSVT (nonsustained ventricular tachycardia) 03/11 Heart failure with preserved ejection fraction 0 03/26/2021 Diastolic dysfunction 03/26/2021 Mild mitral regurgitation 03/26/2021 Dyspnea on exertion 08/14/2020 History of placement of stent in LAD coronary ar bassam 04/14/2018 Overview (04/14/2018): PCI in 2006 Benign hypertension 03/10/2018 PVC's (premature ventricular contractions) 12/25 Nonischemic cardiomyopathy 12/25/2017 CAD (coronary artery disease) Encounters Date Type Department Care Team Description 10/13/2025 Telephone [facility] HEART AND VASCULAR EP AT [address] [place] [address] Rayna Spear NP Supply Room Clerk 10/10/2025 Telephone [facility] Heart [facility] V[facility] - [facility] [address] [place] [address] [address] [place] [address] Aurora Shipley NP Monitor 08/09/2025 Results Follow-Up [facility] At [address] [place] [address] Aly Gomez MD BASIC METABOLIC PANEL 08/01/2025 2:30 PM CDT Office Visit [facility] At [address] [place] [address] Aly Gomez MD Benign hypertension (Primary Dx); Nonischemic cardiomyopathy (CMS/HCC); NSVT (nonsustained ventricular tachycardia) (CMS/HCC); Coronary artery disease involving chickaloon coronary artery of chickaloon heart without angina pectoris; PVC's (premature ventricular contractions) from Last 3 Months Immunizations Immunization Administration Dates Next Due Influenza Seasonal Unspecified Formulation IM Family History Medical History Relation Name Comments Heart Surgery Brother High Cholesterol Father Hypertension Father Fainting Paternal Grandfather High Cholesterol Paternal Grandfather Hypertension Paternal Grandmother Relation Name Status Comments Brother Father Paternal Grandfather Paternal Grandmother Social History Tobacco Use Types Packs/Day Years Used Date Smoking Tobacco: Never Smokeless Tobacco: Never Alcohol Use Standard Drinks/Week Comments Yes 4 (1 standard drink = 0.6 oz pur e alcohol) Feeling Safe Answer Date Recorded Are you in a relationship wi th someone who hurts you emotionally and/or physically? 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 Gender Identity Not on file Sexual Orientation Not on file Last Filed Vital Signs Vital Sign Reading Time Taken Comments Blood Pressure 120/52 08/01/2025 2:02 PM CDT Pulse 58 08/01/2025 2:02 PM CDT Temperature 36.6 C (97.8 F) 09/15/2024 9:57 AM STRINGING MACHINE TENDER Respiratory Rate 21 09/15/2024 11:30 AM STRINGING MACHINE TENDER Oxygen Saturation 96% 08/01/2025 2:02 PM CDT Inhaled Oxygen Concentration - - Weight 111.6 kg (246 lb) 08/01/2025 2:02 PM CDT Height 188 cm (6' 2) 08/01/2025 2:02 PM CDT Body Mass Index 31.58 08/01/2025 2:02 PM CDT Plan of Treatment Upcoming Encounters Date Type Department Care Team (Late st Contact Info) Description 02/02/2026 10:00 AM CDT Office Visit [facility] V[facility] At [address] [place] [phone] Aly Gomez MD [address] [place] [address] [address] [place] [address] 05/15/2026 10:15 AM CDT Office Visit [facility] HEART AND VASCULAR EP AT [address] [place] [address] Aurora Shipley NP [address] [place] [address] [address] [place] [phone] Health Maintenance Due Date Last Done Comments RSV VACCINE (60+ or ) (1 - 1-dose 75+ series) 2022 INFLUENZA VACCINE (#1) 2025 9, 07/19/2018, 09/03/2017, Additional history exists COVID-19 Vaccine (6 - 2024-2 6 season) 2025 06/26/2023, 05/30/2022, 10/10/2021, Additional history exists DTAP/TDAP/TD VACCINES (2 - T d or Tdap) 11/12/2027 11/12/2017 PNEUMOCOCCAL VACCINE 50+ YEARS Completed 01/08/2017 , 11/15/2015 ZOSTER VACCINE Completed 04/30/2019, 01/2019, 03/25/2016 Medical Devices Implanted Type Area Sewer Digger Device Identifier Shelf Expiration Date Model / Serial / Lot Dev Vns Vasc Clsr Vascade Mvp St [id number] - [id number] Implanted:Qty : 1 on 09/15/2024 by Jeet Rai MD at [facility] Closure Device Left: Groin [employer] [id number] 04/14/2026 800-612C- 10U / / [id number] 12C Dev Vns Vasc Clsr Vascade Mvp St [id number] - [id number] Implanted:Qty : 1 on 09/15/2024 by Jeet Rai MD at [facility] Closure Device Left: Groin [employer] [id number] 04/14/2026 800-612C- 10U / / [id number] 12C Dev Vns Vasc Clsr Vascade Mvp St [id number] - [id number] Implanted:Qty : 1 on 09/15/2024 by Jeet Rai MD at [facility] Closure Device Right: Groin [employer] [id number] 04/14/2026 800-612C- 10U / / [id number] 12C Dev Vns Vasc Clsr Vascade Mvp St [id number] - [id number] Implanted:Qty : 1 on 09/15/2024 by Jeet Rai MD at [facility] Closure Device Right: Groin [employer] [id number] 04/14/2026 800-612C- 10U / / [id number] 12C Procedures Procedure Name Priority Date/Time Associated Diagnosis Comments BASIC METABOLIC PANEL Routine 08/08/2025 3:05 PM CDT Benign hypertension from Last 3 Months Results * BASIC METABOLIC PANEL (08/08/2025 3:05 PM CDT) Pathologist [facility] GLUCOSE 97 65 - 99 mg/dL [facility] Comment: Fasting reference interval BUN 21 7 - 25 mg/dL [facility] CREATININE 1.17 0.70 - 1.28 mg/dL [facility] GFR 64 > OR = 60 mL/min/1.7 3m2 [facility] BUN/CREAT RATIO SEE NOTE: 6 - 22 (calc) [facility] Comment: Not Reported: BUN and Creatinine are within reference range. SODIUM 140 135 - 146 mmol/L [facility] POTASSIUM 4.5 3.5 - 5.3 mmol/L [facility] CHLORIDE 105 98 - 110 mmol/L [facility] CO2 29 20 - 32 mmol/L [facility] CALCIUM 10.2 8.6 - 10.3 mg/dL [facility] Comment: [facility] Performed at: [facility] [address] [place] [address] Mazin Calderón MD Blood 08/08/2025 3:05 PM CDT 08/08/2025 3:06 PM CDT us Aly Gomez MD CHEMISTRY ORDERABLES Fi nal Result [facility] [phone] [facility] [address] [place] [address] from Last 3 [place] [address] Advance Directives For more information, please contact: [phone] * Full Code (Latest Code Status on File) Date Activated Date Inactivated Comments 09/15/2024 10:29 AM 09/15/2024 4:18 PM * Full Code Date Activated Date Inactivated Comments 09/15/2024 5:38 AM 09/15/2024 10:29 AM * Full Code Date Activated Date Inactivated Comments 06/03/2018 2:42 PM 06/03/2018 8:36 PM * Full Code Date Activated Date Inactivated Comments 06/03/2018 10:48 AM 06/03/2018 2:42 PM Care Teams Wind Turbine Blade Repair Technician Relationship Specialty Start Date End Date Blas Wilkinson DO [address] [facility] [address] [facility] [address] [place] [address] PCP - General Internal Medicine 09/15/24
--- OUTSIDE RECORDS SUMMARY | 2025-10-26 09:12 | XMS_ITS | Encounter Summary ---
Author Organization [facility] Health Address [address] [facility] [place] [address] Care Team Providers Care Machine Filler Shredder Name Role Phone Doe Cormier DO Primary Care Provider [phone] Encounter Details Date Type Department Care Team (Late st Contact Info) Description 12/28/2021 Lab Requisition [facility] Lab [address] [facility] [place] [phone] Paulo Brewer MD [address] [facility] [place] [address] Social History Tobacco Use Types Packs/Day Years Used Date Smoking Tobacco: Never Assessed Sex and Gender Information Value Date Recorded Sex Assigned at Not on file Legal Sex Male 9:42 AM CDT Gender Identity Not on file Sexual Orientation Not on file documented as of this encounter Plan of Treatment Not on file documented as of this encounter Procedures Procedure Name Priority Date/Time Associated Diagnosis Comments DERMATOPATHOLOGY Routine 12/28/2021 12:0 0 AM PERISHABLE FRUIT INSPECTOR documented in this encounter Results * DERMATOPATHOLOGY (12/28/2021 12:00 AM PERISHABLE FRUIT INSPECTOR) Case Report Dermatopathology Report Case: [id number] Authorizing Provider: Paulo Brewer MD Collected: 12/28/2021 12:00 AM Ordering Location: [facility] Received: 12/28/2021 03:01 PM Pathologist: Daisha Sanabria MD Specimen: Skin, left lower nare 4:10 PM PERISHABLE FRUIT INSPECTOR DERMATOPATHOLOGY LABORATORY Final Diagnosis Specimen A. 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 Path # [id number]. 2 4:10 PM [facility] DERMATOPATHOLOGY LABORATORY Gross Description Specimen A: Received is one formalin filled container labeled with the patient's name and designated left lower nare. The specimen consists of a shave biopsy measuring [id number]. Jar 0. 2 4:10 PM [facility] DERMATOPATHOLOGY LABORATORY Microscopic Description Specimen A. SKIN, left lower nare: Sections show papillomatosis. Some of the cells within the granular layer show coarsened keratohyalin granules. Within the dermis, dilated vessels and a patchy lymphocytic infiltrate are present. 2 4:10 PM [facility] DERMATOPATHOLOGY LABORATORY Disclaimer An external and internal positive and negative controls are appropriate for the histochemical, immunohistochemical and immunofluorescence stain(s) in this case (if any), except where stated explicitly. The performance characteristics of the stain(s) cited in this report were developed and its performance characteristic determined by the Dermatopathology Laboratory at [facility], directed by Dr. Luz Marina Saanbria. These tests need not be, and therefore are not, approved by the [place] Food and Drug Administration. The tests are used for clinical purposes. Billing Codes Specimen Charges Stain Charges 50498 1 2 4:10 PM [facility] DERMATOPATHOLOGY LABORATORY Embedded Images 2 4:10 PM [facility] DERMATOPATHOLOGY LABORATORY Pathology/Cytolog y TISSUE SPECIMEN FROM SKIN / Unknown 12/28/2021 12/28/2021 3:01 PM [facility] us Paulo Brewer MD LAB - PATHOLOGY/CYTOLOGY ORDER NATAN Final Result DERMATOPATHOLOGY LABORATORY [facility] - Department of Dermatology [address] [place] [address], [facility] [phone] documented in this encounter Visit Diagnoses Not on filedocumented in this encounter Care Teams Machine Filler Shredder Relationship Specialty Start Date End Date Doe Cormier DO [address] [facility] [address] [place] [address] PCP - General 06/29/18 documented as of this encounter
--- OUTSIDE RECORDS SUMMARY | 2025-10-26 09:12 | XMS_ITS | Encounter Summary ---
Author Organization [facility] Address [address] [place] [address] Care Team Providers Care Grey Iron Molder Name Role Phone Blas Wilkinson Samra TAYLOR Primary Care Provider [phone] Reason for Visit * Reason Onset Date Comments Monitor 10/10/2025 Encounter Details Date Type Department Care Team (Late st Contact Info) Description 10/10/2025 Telephone [facility] Heart [facility] V[facility] - [facility] [address] [facility] [address] [place] [address] Aurora Shipley, CATHLEEN [address] [facility] [address] [place] [address] Monitor Social History Tobacco Use Types Packs/Day Years [...] on file Legal 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 Please call patient at [phone]. Thank you CHIPPER OPERATOR documented in this encounter Plan of Treatment Upcoming Encounters Date Type Department Care Team (Late st Contact Info) Description 02/02/2026 10:00 AM CDT Office Visit [facility] At [address] [place] [address] Aly Gomez MD [address] [place] [address] [address] [place] [address] 05/15/2026 10:15 AM CDT Office Visit [facility] HEART AND VASCULAR EP AT [address] [place] [address] Aurora Shipley NP [address] [place] [address] [address] [place] [address] documented as of this encounter Visit Diagnoses Not on filedocumented in this encounter Care Teams Grey Iron Molder Relationship Specialty Start Date End Date Blas Wilkinson DO [address] [facility] [address] [place] [address] PCP - General Internal Medicine 09/15/24 documented as of this encounter
--- OUTSIDE RECORDS SUMMARY | 2025-10-26 09:12 | XMS_ITS | Encounter Summary ---
Author Organization [facility] Health Address [address] [facility] [place] [address] Care Team Providers Care Purse Seiner Name Role Phone Doe Cormier DO Primary Care Provider Encounter Details Date Type Department Care Team (Late st Contact Info) Description 12/30/2022 Lab Requisition [facility] Derm[facility] Lab [address] [facility] [place] [phone] Paulo Brewer MD [address] [place] [address] Social History Tobacco Use Types Packs/Day Years [...] Priority Date/Time Associated Diagnosis Comments DERMATOPATHOLOGY Routine 12/27/2022 12:0 0 AM PRODUCTION CONTROL PLANNER documented in this encounter Results * DERMATOPATHOLOGY (12/27/2022 12:00 AM PRODUCTION CONTROL PLANNER) Case Report Dermatopathology Report Case: [id number] Authorizing Provider: Paulo Brewer MD Collected: 12/27/2022 12:00 AM Ordering Location: [facility] Received: 12/30/2022 04:23 PM Pathologist: Brittnee Lacey MD Specimens: A) - Skin, mid back B) - Skin, crown scalp 1:25 PM [facility] DERMATOPATHOLOGY LABORATORY Final Diagnosis Specimen A. SKIN, mid back: PIGMENTED SEBORRHEIC KERATOSIS (L82.1) Specimen B. SKIN, crown scalp: SEBORRHEIC KERATOSIS, IRRITATED (L82.0) 3 1:25 PM [facility] DERMATOPATHOLOGY LABORATORY at [address] PRODUCTION CONTROL PLANNER Clinical History A: SK vs MM Path#[id number] B: SK vs BCC vs SCC Path#[id number] 3 1:25 PM [facility] DERMATOPATHOLOGY LABORATORY Gross Description Specimen A: Received is one formalin filled container labeled with the patient's name and designated mid back. The specimen consists of a shave biopsy measuring 6x5x1 mm. Jar 0. Specimen B: Received is one formalin filled container labeled with the patient's name and designated crown scalp. The specimen consists of a shave biopsy measuring 6x5x1 mm. Jar 0. 1:25 PM [facility] DERMATOPATHOLOGY LABORATORY Microscopic Description Specimen A. SKIN, mid back: Sections show an acanthotic lesion composed of relatively uniform keratinocytes. There is hyperkeratosis and pseudo horn cysts. Pigment is present in the keratinocytes composing this tumor. Specimen B. SKIN, crown scalp: There is acanthosis consisting of fairly uniform squamous cells with eosinophilic cytoplasm and squamous eddies. 3 1:25 PM [facility] DERMATOPATHOLOGY LABORATORY Disclaimer An external and internal positive and negative controls are appropriate for the histochemical, immunohistochemical and immunofluorescence stain(s) in this case (if any), except where stated explicitly. The performance characteristics of the stain(s) cited in this report were developed and its performance characteristic determined by the Dermatopathology Laboratory at [facility], directed by Dr. Luz Marina Sanabria. These tests need not be, and therefore are not, approved by the [place] Food and Drug Administration. The tests are used for clinical purposes. Billing Codes Specimen Charges Stain Charges 16776 27862 1 1 3 1:25 PM [facility] DERMATOPATHOLOGY LABORATORY Embedded Images 1:25 PM [facility] DERMATOPATHOLOGY LABORATORY Pathology/Cytology TISSUE SPECIMEN FROM SKIN / Unknown 12/27/2022 12/30/2022 4:23 PM PRODUCTION CONTROL PLANNER Miscellaneous samples (specimen) TISSUE SPECIMEN FROM SKIN / Unknown 12/27/2022 12/30/2022 4:23 PM PRODUCTION CONTROL PLANNER us Paulo Brewer MD LAB - PATHOLOGY/CYTOLOGY ORDER NATAN Final Result DERMATOPATHOLOGY LABORATORY [facility] - Department of Dermatology [facility] [address] [place] [address], [address] [phone] documented in this encounter Visit Diagnoses Not on filedocumented in this encounter Care Teams Purse Seiner Relationship Specialty Start Date End Date Doe Cormier DO [address] [facility] [address] [facility] [address] [place] [address] PCP - General 06/29/18 documented as of this encounter
== END 2025-10-26 08:43 | disposition home or self-care (01) ==
PROVIDERS: PCP Internal Medicine; Visit Provider Podiatrist Foot & Ankle Surgery
DX: I73.9 Peripheral vascular disease, unspecified (principal)
CPT/HCPCS: 93923